=== PATIENT | female | born 1980 | race Caucasian/White ===

== ENCOUNTER 2017-01-31 19:41 | Emergency (ER) | payer BC ==
[~2017-01-31] VITALS: Ht 157.5 cm; Wt 56.2 kg
[2017-01-31 19:51] VITALS: BP 124/70; PULSE 97; RESP 18; TEMP 98.5; O2SAT 100
[2017-01-31] MEDS ORDERED: ONDANSETRON HCL 4 MG/2 ML VIAL IV PUSH ONE (20:45)
[2017-01-31] MEDS ORDERED: THIAMINE INJ 100 MG in SODIUM CHLORIDE 0.9% INJ 100 ML IV ONE (20:45)
[2017-01-31] MEDS ORDERED: SODIUM CHLOR 0.9% 1000 ML INJ 1,000 ML IV SCH ×2 (20:45)
--- NOTE | 2017-01-31 21:33 | PD ---
HPI Chief Complaint: GI Complaint Time Seen by Provider: 20:10 Travel History International Travel<30 days: No Contact w/Intl Traveler<30days: No Traveled to known affect area: No History of Present Illness HPI Is a 36 year-old woman presents to the emergency department at about 10 weeks complains of nausea vomiting. She states she's had nausea and vomiting for the past 2 weeks or so. She hasn't really been able to eat or drink anything past several days. This is her second . With her first she had a lot of trouble with nausea and vomiting as well. She was on Zofran and then. She sees Dr. Wharton. She wanted to hold off until the second trimester to use Zofran. She denies any abdominal cramping bleeding or discharge. She has had a little bit of sore throat and irritation, chest burning, and some epistaxis. History Past Medical History Medical History: Denies Significant Hx Tetanus Vaccination: > 5 Years Influenza Vaccination: No LMP: 11/08/16 : 2 Para: 1 Past Surgical History Surgical History: No Previous Surgery Social History Alcohol Use: No Tobacco Use: No Allergies-Medications (Allergen,Severity, Reaction): Coded Allergies: Penicillin (Verified Adverse Reaction, Mild, unknown, 01/31/17) Uncoded Allergies: CILLINS (Allergy, Severe, 04/16/15) Reported Meds & Prescriptions Reported Meds & Active Scripts Active No Active Prescriptions or Reported Medications Review of Systems Except as stated in HPI: all other systems reviewed are Neg Physical Exam Narrative GENERAL: 36 year-old woman, generally well-appearing, no acute distress. SKIN: Focused skin assessment warm/dry. HEAD: Atraumatic. Normocephalic. CARDIOVASCULAR: Regular rate and rhythm. No murmur appreciated. RESPIRATORY: No accessory muscle use. Clear to auscultation. Breath sounds equal bilaterally. GASTROINTESTINAL: Abdomen soft, non-tender, nondistended. Hepatic and splenic margins not palpable. MUSCULOSKELETAL: No obvious deformities. No edema. NEUROLOGICAL: Awake and alert. No obvious cranial nerve deficits. Motor grossly within normal limits. Normal speech. PSYCHIATRIC: Appropriate mood and affect; insight and judgment normal. Data Data Last Documented VS Vital Signs Date Time Temp Pulse Resp B/P Pulse Ox O2 Delivery O2 Flow Rate FiO2 01/31/17 21:34 79 16 120/74 100 Room Air 01/31/17 19:51 98.5 Orders Complete Blood Count With Diff (01/31/17 20:39) Comprehensive Metabolic Panel (01/31/17 20:39) Urinalysis - C+S If Indicated (01/31/17 20:39) Iv Access Insert/Monitor (01/31/17 20:39) Ed Poc Ultrasound (01/31/17 ) Sodium Chlor 0.9% 1000 Ml Inj (Ns 1000 M (01/31/17 20:45) Sodium Chlor 0.9% 1000 Ml Inj (Ns 1000 M (01/31/17 20:45) Thiamine Inj (Thiamine Inj) (01/31/17 20:45) Ondansetron Inj (Zofran Inj) (01/31/17 20:45) Urine Culture (01/31/17 21:25) Labs Laboratory Tests Test 01/31/17 01/31/17 21:15 21:25 White Blood Count 8.0 TH/MM3 Red Blood Count 4.21 MIL/MM3 Hemoglobin 13.3 GM/DL Hematocrit 38.6 % Mean Corpuscular Volume 91.7 FL Mean Corpuscular Hemoglobin 31.6 PG Mean Corpuscular Hemoglobin 34.4 % Concent Red Cell Distribution Width 12.0 % Platelet Count 306 TH/MM3 Mean Platelet Volume 8.6 FL Neutrophils (%) (Auto) 72.3 % Lymphocytes (%) (Auto) 21.1 % Monocytes (%) (Auto) 5.8 % Eosinophils (%) (Auto) 0.3 % Basophils (%) (Auto) 0.5 % Neutrophils # (Auto) 5.8 TH/MM3 Lymphocytes # (Auto) 1.7 TH/MM3 Monocytes # (Auto) 0.5 TH/MM3 Eosinophils # (Auto) 0.0 TH/MM3 Basophils # (Auto) 0.0 TH/MM3 CBC Comment DIFF FINAL Differential Comment Sodium Level 138 MEQ/L Potassium Level 3.9 MEQ/L Chloride Level 105 MEQ/L Carbon Dioxide Level 24.8 MEQ/L Anion Gap 8 MEQ/L Blood Urea Nitrogen 4 MG/DL Creatinine 0.42 MG/DL Estimat Glomerular Filtration 173 ML/MIN Rate Random Glucose 80 MG/DL Calcium Level 8.5 MG/DL Total Bilirubin 0.5 MG/DL Aspartate Amino Transf 10 U/L (AST/SGOT) Alanine Aminotransferase 16 U/L (ALT/SGPT) Alkaline Phosphatase 46 U/L Total Protein 7.2 GM/DL Albumin 3.6 GM/DL Urine Color YELLOW Urine Turbidity SLIGHT Urine pH 6.0 Urine Specific [place] 1.018 Urine Protein NEG mg/dL Urine Glucose (UA) NEG mg/dL Urine Ketones 80 OR GREATER mg/dL Urine Occult Blood NEG Urine Nitrite NEG Urine Bilirubin NEG Urine Leukocyte Esterase NEG Urine WBC 0-2 /hpf Urine Squamous Epithelial 0-5 /hpf Cells Urine Bacteria MOD /hpf Urine Mucus MOD /lpf Urine Yeast (Budding) RARE Microscopic Urinalysis Comment CULTURE INDICATED MDM Medical Decision Making Medical Screen Exam Complete: Yes Emergency Medical Condition: Yes Differential Diagnosis Nausea vomiting of , dehydration, vitamin deficiency, other Narrative Course Medical decision making 36-year-old with hyperemesis gravidarum. She looks well. We'll give IV fluid hydration, check labs, check urine, give Zofran, give thiamine. Reassess. Procedures Procedure Narrative Point of care ultrasound: Focus transabdominal ultrasounds performed by me at the bedside for the purpose of evaluating for well-being. Vanegas acute brace was identified, roughly consistent with dates, good movement, good heart rate. Diagnosis Primary Impression: Hyperemesis gravidarum Patient Instructions: General Instructions Additional Instructions: Use Zofran as prescribed. Take ranitidine as prescribed. Follow up with Dr. Handley in the next 2-4 days. Return to the ER for any worsening abdominal pain, vomiting, bleeding, or any other new or worsening symptoms. Med/Other Pt SpecificInfo: Prescription(s) given Scripts Ranitidine 150 Mg [id number] Mg PO BID #60 CAP Prov:Basilio Ramirez MD 01/31/17 Ondansetron Odt (Zofran Odt)4 Mg Tab4 Mg SL Q8HR PRN (Nausea/Vomiting) #15 TAB May substitute non-ODT form. Prov:Basilio Ramirez MD 01/31/17 Disposition: 01 DISCHARGE HOME Condition: Stable Basilio Ramirez MD Jan 31, 2017 21:33
[2017-01-31 21:34] VITALS: BP 120/74; PULSE 79; RESP 16; O2SAT 100
[2017-01-31 21:41] LABS: BLOOD, URINE NEG (NEG); GLUCOSE,URINE NEG (NEG); NITRITE,URINE NEG (NEG)
[2017-01-31 21:42] LABS: AUTOMATED NEUTROPHIL # 5.8 TH/MM3 (1.8-7.7); BASOPHIL % 0.5 % (0.0-2.0); EOSINOPHIL % 0.3 % (0.0-4.0); HEMATOCRIT 38.6 % (35.0-46.0); LYMPH % 21.1 % (9.0-44.0); LYMPHOCYTE # 1.7 TH/MM3 (1.0-4.8); MEAN CELL VOLUME 91.7 FL (80.0-100.0); MEAN CORPUSCULAR HEMOGLOBIN 31.6 PG (27.0-34.0); MEAN CORPUSCULAR HGB CONC 34.4 % (32.0-36.0); MONO % 5.8 % (0.0-8.0); NEUT % 72.3 % (16.0-70.0); PLATELET COUNT 306 TH/MM3 (150-450); RED BLOOD COUNT 4.21 MIL/MM3 (4.00-5.30)
[2017-01-31 21:48] LABS: HEMO FLAGS DIFF FINAL
[2017-01-31 21:52] LABS: CHLORIDE 105 MEQ/L (98-107); POTASSIUM 3.9 MEQ/L (3.5-5.1); SODIUM (NA) 138 MEQ/L (136-145)
[2017-01-31 21:55] LABS: KETONE, URINE 80 OR GREATER mg/dL (NEG)
[2017-01-31 21:56] LABS: ANION GAP 8 MEQ/L (5-15); BICARBONATE 24.8 MEQ/L (21.0-32.0); BLOOD UREA NITROGEN 4 MG/DL (7-18)
[2017-01-31 21:56] LABS: URINE COLOR YELLOW (YELLW/STRAW)
[2017-01-31 21:57] LABS: BACTERIA, URINE MOD /hpf; MUCUS URINE MOD /lpf (OCC); SQUAMOUS EPITHELIAL CELL URINE 0-5 /hpf (0-5)
[2017-01-31 21:59] LABS: ALT (GPT) 16 U/L (10-53); AST (GOT) 10 U/L (15-37); GLOMERULAR FILTRATION RATE 173 ML/MIN (>89)
[2017-01-31 22:00] LABS: TOTAL BILIRUBIN ADULT 0.5 MG/DL (0.2-1.0)
[2017-01-31 22:00] LABS: COMMENT (UR) CULTURE INDICATED; CULTURE IF INDICATED CULTURE INDICATED; WBC, URINE 0-2 /hpf (0-5)
[2017-01-31 22:02] LABS: ALKALINE PHOSPHATASE 46 U/L (45-117)
[2017-01-31] MEDS ORDERED: RANI150C PO ×2 (22:30→22:32)
[2017-01-31] MEDS ORDERED: ZOFR4TAB3 SL ×2 (22:30→22:32)
[2017-01-31 22:43] VITALS: BP 115/73; PULSE 79; RESP 18; O2SAT 100
== END 2017-01-31 23:15 | disposition home or self-care (01) ==
LOC: PHED 19:41
DX: O21.0 Mild hyperemesis gravidarum (principal); B96.89 Other specified bacterial agents as the cause of diseases classified elsewhere; Z3A.10 10 weeks gestation of pregnancy
CPT/HCPCS: 80053; 81001; 85025; 87086; 96361; 96365; 96375; 99284; J2405; J3411; J7030

== ENCOUNTER 2017-02-07 11:56 | Observation (INO) | payer BC ==
[~2017-02-07] VITALS: Ht 157.5 cm; Wt 56.0 kg
[2017-02-07] VITALS (9 sets, daily range): BP systolic 99–104; BP diastolic 53–56; PULSE 72–82; RESP 16–17; TEMP 98.1
[~2017-02-07 11:56] MED LIST: RANI150C PO; ZOFR4TAB3 SL
[2017-02-07 13:28] LABS: AUTOMATED NEUTROPHIL # 6.9 TH/MM3 (1.8-7.7); BASOPHIL % 0.3 % (0.0-2.0); HEMATOCRIT 36.8 % (35.0-46.0); HEMO FLAGS DIFF FINAL; LYMPH % 13.1 % (9.0-44.0); LYMPHOCYTE # 1.1 TH/MM3 (1.0-4.8); MEAN CELL VOLUME 90.1 FL (80.0-100.0); MEAN CORPUSCULAR HEMOGLOBIN 32.1 PG (27.0-34.0); MEAN CORPUSCULAR HGB CONC 35.6 % (32.0-36.0); MONO % 4.2 % (0.0-8.0); NEUT % 82.4 % (16.0-70.0); PLATELET COUNT 279 TH/MM3 (150-450); RED BLOOD COUNT 4.09 MIL/MM3 (4.00-5.30); RED CELL DISTRIBUTION WIDTH 12.6 % (11.6-17.2); WHITE BLOOD COUNT 8.4 TH/MM3 (4.0-11.0)
[2017-02-07] MEDS: LACTATED RINGER'S 1000 ML INJ 500 ML IV SCH (13:55)
[2017-02-07] MEDS: METOCLOPRAMIDE HCL 10 MG/2 ML VIAL IV SCH (13:55)
[2017-02-07] MEDS ORDERED: PROMETHAZINE INJ 25 MG/ML VIAL IM ONE (14:00)
[2017-02-07 14:14] LABS: ANION GAP 8 MEQ/L (5-15); AST (GOT) 7 U/L (15-37); BICARBONATE 24.9 MEQ/L (21.0-32.0); BLOOD UREA NITROGEN 5 MG/DL (7-18); CHLORIDE 103 MEQ/L (98-107); GLOMERULAR FILTRATION RATE 148 ML/MIN (>89); POTASSIUM 3.6 MEQ/L (3.5-5.1); SODIUM (NA) 136 MEQ/L (136-145)
[2017-02-07 14:19] LABS: RUBELLA IGG ANTIBODY 25.2 IU/mL (10.0-500.0); RUBELLA STATUS IMMUNE (IMMUNE)
[2017-02-07 14:26] LABS: ALKALINE PHOSPHATASE 43 U/L (45-117); ALT (GPT) 17 U/L (10-53); TOTAL BILIRUBIN ADULT 0.5 MG/DL (0.2-1.0); URIC ACID 3.2 MG/DL (2.6-6.0)
[2017-02-07] MEDS: FAMOTIDINE 20 MG/2 ML VIAL IV SCH ×2 (15:29→20:31)
--- NOTE | 2017-02-07 18:14 | PD.OB.ANTE ---
Subjective Diagnosis: (1) Hyperemesis gravidarum Interval History H & P dictated 36 yo mwf at 11 weeks with 10 pounds weight loss in 3 weeks, severe ketonuria, Inability to tolerate any po and multiple syncopal episodes including in my office today. Sent over for IV hydration and supportive care. Objective Vital Signs Vital Signs Date Time Temp Pulse Resp B/P Pulse Ox O2 Delivery O2 Flow Rate FiO2 02/07/17 17:56 17 02/07/17 13:39 17 02/07/17 13:37 73 104/56 02/07/17 13:35 72 02/07/17 13:30 76 Lab & Micro Results Test 02/07/17 02/07/17 13:07 13:08 White Blood Count 8.4 TH/MM3 Red Blood Count 4.09 MIL/MM3 Hemoglobin 13.1 GM/DL Hematocrit 36.8 % Mean Corpuscular Volume 90.1 FL Mean Corpuscular Hemoglobin 32.1 PG Mean Corpuscular Hemoglobin 35.6 % Concent Red Cell Distribution Width 12.6 % Platelet Count 279 TH/MM3 Mean Platelet Volume 8.8 FL Neutrophils (%) (Auto) 82.4 % Lymphocytes (%) (Auto) 13.1 % Monocytes (%) (Auto) 4.2 % Eosinophils (%) (Auto) 0.0 % Basophils (%) (Auto) 0.3 % Neutrophils # (Auto) 6.9 TH/MM3 Lymphocytes # (Auto) 1.1 TH/MM3 Monocytes # (Auto) 0.4 TH/MM3 Eosinophils # (Auto) 0.0 TH/MM3 Basophils # (Auto) 0.0 TH/MM3 CBC Comment DIFF FINAL Differential Comment Sodium Level 136 MEQ/L Potassium Level 3.6 MEQ/L Chloride Level 103 MEQ/L Carbon Dioxide Level 24.9 MEQ/L Anion Gap 8 MEQ/L Blood Urea Nitrogen 5 MG/DL Creatinine 0.48 MG/DL Estimat Glomerular Filtration 148 ML/MIN Rate Random Glucose 78 MG/DL Uric Acid 3.2 MG/DL Calcium Level 8.9 MG/DL Total Bilirubin 0.5 MG/DL Aspartate Amino Transf 7 U/L (AST/SGOT) Alanine Aminotransferase 17 U/L (ALT/SGPT) Alkaline Phosphatase 43 U/L Total Protein 7.3 GM/DL Albumin 3.7 GM/DL Thyroid Stimulating Hormone 0.331 uIU/ML 3rd Gen B-Hydroxybutyrate 0.20 MMOL/L Rubella Immunity Screen IMMUNE Rubella Antibody, Quantitative 25.2 IU/mL Blood Type O POSITIVE Antibody Screen NEGATIVE Physical Exam GENERAL: Well-nourished, well-developed patient. initially poor skin turgor. CARDIOVASCULAR: Regular rate and rhythm without murmurs, gallops, or rubs. tachycardia observed in office resolved RESPIRATORY: Breath sounds equal bilaterally. No accessory muscle use. ABDOMEN/GI: Abdomen soft, non-tender. heart tones heard in office. EXTREMITIES: No cyanosis or edema, non-tender, without signs of DVT. Assessment and Plan Assessment and Plan hydrate reglan, zantac and phenergan advance diet as tolerated. Juliette Wharton MD Feb 07, 2017 18:14
[2017-02-07] MEDS: LACTATED RINGER'S 1000 ML INJ 1,000 ML IV SCH (18:20)
--- NOTE | 2017-02-07 18:21 | MH ---
cc: RAYRAY VIGIL DATE OF ADMISSION: 02/07/2017 ADMISSION DIAGNOSIS Hyperemesis gravidarum with severe ketonuria, 10 pound weight loss and multiple persistent episodes of syncope including the one in my office today. She is currently at 11 weeks estimated gestational age. HISTORY OF PRESENT ILLNESS The patient is a very pleasant 36-year-old white female 2, para 1-0-0-1 with LMP 11/08 and EDC 08/15 by initial dates but 08/29/2017 by 6-week sonogram, is currently 11 and 07 weeks. This is the second visit in the office. At the first visit at six weeks we deferred her exam due to severe nausea and vomiting. She was given diclegis and then she was given Zofran. She went to the emergency room two days ago at [facility] for syncopal episodes, dehydration. She was hydrated and given additional antiemetics and sent home. She came to our office today to do her new OB and literally passed out in the office. She had severe ketones. She has lost 10 pounds since her visit January 04 and she cannot hold down any fluids or any solids. She had severe nausea with her first child but not to this extent. That was a term delivery at 7 pounds 2 ounces Other than this hyperemesis gravidarum, she has no chronic or systemic illnesses. She does not smoke or drink. She is not using any alcohol during . She has had no thyromegaly, hepatitis or other issues that we are aware. Family history is noncontributory. She works at the [employer] and her works for [employer]. PHYSICAL EXAMINATION GENERAL: She is a very pale, thin white female with poor skin turgor and tachycardia. LUNGS: Clear. HEART: Regular at 120. We did hear good heart tones. She has poor capillary refill and diminished pulses but normal reflexes. IMPRESSION Hyperemesis gravidarum in late first trimester in a multip who has had problems with nausea and vomiting in the past but not to this extent. PLAN Admit for IV hydration and aggressive intervention to allow her to obtain nutrition and do well. Rayray Vigil MD PPC/SA /5:33 PM /6:13 PM MTDGurdeep
[2017-02-08] VITALS (11 sets, daily range): BP systolic 81–110; BP diastolic 43–60; PULSE 75–87; RESP 16–18; TEMP 97.9–98.4
[2017-02-08] MEDS: PROMETHAZINE HCL 25 MG TAB PO SCH ×3 (00:25→14:17)
[2017-02-08] MEDS: METOCLOPRAMIDE HCL 10 MG/2 ML VIAL IV SCH ×2 (00:25→06:00)
[2017-02-08] MEDS: LACTATED RINGER'S 1000 ML INJ 1,000 ML IV SCH ×3 (00:26→13:17)
[2017-02-08] MEDS: LACTATED RINGER'S 1000 ML INJ 500 ML IV SCH (07:09)
[2017-02-08] MEDS: FAMOTIDINE 20 MG/2 ML VIAL IV SCH (09:00)
[2017-02-08] MEDS ORDERED: DOCUSATE SODIUM 100 MG CAP PO SCH (09:15)
[2017-02-08] MEDS ORDERED: FAMOTIDINE 20 MG TAB PO SCH (09:15)
[2017-02-08] MEDS ORDERED: REGL10TA5 PO (09:17)
[2017-02-08] MEDS ORDERED: PROM25TA10 PO (09:17)
[2017-02-08] MEDS ORDERED: ZANT150T2 PO (09:17)
--- NOTE | 2017-02-08 09:21 | PD.OB.ANTE ---
Subjective Diagnosis: (1) Hyperemesis gravidarum Diagnosis: Principal Interval History Pt states overnight she has improved as far as nausea symptoms, tolerated clears and wants to try regular diet for breakfast. Denies dizziness, fatigue, shortness of breath, VB, LOF, or contractions. Pain 0/10. Antepartum ROS: Reports: movement normal (too early for movement), Denies: New complaints, Loss of fluid, Vaginal bleeding, Contractions, Other Objective Vital Signs Vital Signs Date Time Temp Pulse Resp B/P Pulse Ox O2 Delivery O2 Flow Rate FiO2 02/08/17 08:13 76 102/60 02/08/17 08:12 18 02/08/17 08:12 76 100/57 02/08/17 08:10 98.3 02/08/17 03:39 78 110/57 02/08/17 03:39 16 02/08/17 03:38 97.9 02/08/17 00:35 80 105/59 02/08/17 00:07 77 85/54 02/08/17 00:06 75 82/43 02/08/17 00:05 76 81/50 02/08/17 00:00 98.4 02/08/17 00:00 77 16 85/54 02/07/17 20:45 80 02/07/17 20:30 16 02/07/17 20:25 82 02/07/17 20:25 99/53 02/07/17 20:24 98.1 02/07/17 17:56 17 02/07/17 13:39 17 02/07/17 13:37 73 104/56 02/07/17 13:35 72 02/07/17 13:30 76 Lab & Micro Results Test 02/07/17 02/07/17 13:07 13:08 White Blood Count 8.4 TH/MM3 Red Blood Count 4.09 MIL/MM3 Hemoglobin 13.1 GM/DL Hematocrit 36.8 % Mean Corpuscular Volume 90.1 FL Mean Corpuscular Hemoglobin 32.1 PG Mean Corpuscular Hemoglobin 35.6 % Concent Red Cell Distribution Width 12.6 % Platelet Count 279 TH/MM3 Mean Platelet Volume 8.8 FL Neutrophils (%) (Auto) 82.4 % Lymphocytes (%) (Auto) 13.1 % Monocytes (%) (Auto) 4.2 % Eosinophils (%) (Auto) 0.0 % Basophils (%) (Auto) 0.3 % Neutrophils # (Auto) 6.9 TH/MM3 Lymphocytes # (Auto) 1.1 TH/MM3 Monocytes # (Auto) 0.4 TH/MM3 Eosinophils # (Auto) 0.0 TH/MM3 Basophils # (Auto) 0.0 TH/MM3 CBC Comment DIFF FINAL Differential Comment Sodium Level 136 MEQ/L Potassium Level 3.6 MEQ/L Chloride Level 103 MEQ/L Carbon Dioxide Level 24.9 MEQ/L Anion Gap 8 MEQ/L Blood Urea Nitrogen 5 MG/DL Creatinine 0.48 MG/DL Estimat Glomerular Filtration 148 ML/MIN Rate Random Glucose 78 MG/DL Uric Acid 3.2 MG/DL Calcium Level 8.9 MG/DL Total Bilirubin 0.5 MG/DL Aspartate Amino Transf 7 U/L (AST/SGOT) Alanine Aminotransferase 17 U/L (ALT/SGPT) Alkaline Phosphatase 43 U/L Total Protein 7.3 GM/DL Albumin 3.7 GM/DL Thyroid Stimulating Hormone 0.331 uIU/ML 3rd Gen B-Hydroxybutyrate 0.20 MMOL/L Rubella Immunity Screen IMMUNE Rubella Antibody, Quantitative 25.2 IU/mL Blood Type O POSITIVE Antibody Screen NEGATIVE Physical Exam GENERAL: Well-nourished, well-developed patient. Sitting up in bed. CARDIOVASCULAR: Regular rate and rhythm without murmurs, gallops, or rubs. RESPIRATORY: Breath sounds equal bilaterally. No accessory muscle use. ABDOMEN/GI: Abdomen soft, non-tender. Fundus: beneath symphysis c/w dates GENITOURINARY: External Genitalia: deferred FHT's: +FCA 170s this AM EXTREMITIES: No cyanosis or edema, non-tender, without signs of DVT. Assessment and Plan Problem List: (1) Hyperemesis gravidarum Status: Acute Assessment and Plan Hyperemesis gravidarum - controlled with combination of Pepcid, Phenergan, Reglan IV overnight; will transition to po and see if tolerates lunch today; TSH low but need confirmatory Free T4, ordered this AM, will f/u and see if needs treatment dispo: not yet meeting discharge criteria, hopefully later today Niurka Currie MD Feb 08, 2017 09:20
[2017-02-08] MEDS ORDERED: METOCLOPRAMIDE HCL 10 MG TAB PO SCH (11:00)
[2017-02-08 12:38] LABS: FREE T3 2.3 PG/ML (2.18-3.98); FREE T4 1.2 NG/DL (0.76-1.46)
--- NOTE | 2017-02-08 13:35 | HHI.DS ---
Discharge Summary Admission Date Feb 07, 2017 at 11:56 Discharge Date: Feb 08, 2017 Admitting Diagnosis Hyperemesis gravidarum, dennis at 11 weeks (1) Hyperemesis gravidarum Diagnosis: Principal Procedures monitoring on labor and delivery, IV fluids and IV medication Brief History 36 yo at 11 weeks gestation, pt of Dr. Chavez admitted after fainting in office due to history of severe nausea/vomiting in first trimester, hyperemesis gravidarum diagnosed. Pt was poorly controlled on oral Zofran. CBC/BMP: 02/07/17 1307 02/07/17 1307 Significant Findings Laboratory Tests Test 02/07/17 13:07 Neutrophils (%) (Auto) 82.4 % (16.0-70.0) Blood Urea Nitrogen 5 MG/DL (7-18) Creatinine 0.48 MG/DL (0.50-1.00) Aspartate Amino Transf 7 U/L (15-37) (AST/SGOT) Alkaline Phosphatase 43 U/L (45-117) Thyroid Stimulating Hormone 0.331 uIU/ML 3rd Gen (0.358-3.740) PE at Discharge NAD A&Ox3 CTA bl no wheeze RRR Abd soft nontender nondistended uterus beneath symphysis c/w dates no c/c/e x 4 +FHTs 170s Hospital Course Pt was admitted 02/07/17 for IV hydration and IV antiemetics to control severe hyperemesis symptoms including syncope in office. Pt did well after medications and IV fluids, was transitioned to po anti-emetics and reflux medications, tolerated breakfast and lunch and was able to ambulate without any dizziness or fatigue. Discharged to home with office f/u in 1-[address] Wharton. Screening TSH had been abnormal but Free T4 was wnl. Pt Condition on Discharge: Good Discharge Disposition: Discharge Home Discharge Instructions DIET: Follow Instructions for: Diet Activities you can perform: See Additionl Instruction ( precautions) Niurka Currie MD Feb 08, 2017 13:35
[2017-02-08 14:11] LABS: RAPID PLASMA REAGIN SCREEN NON-REACTIVE (NON-REACTVE)
[2017-02-10 03:51] LABS: THYROGLOB ABS LESS THAN 1 IU/mL (< OR = 1)
== END 2017-02-08 15:45 | disposition home or self-care (01) ==
LOC: H2EB 11:56
PROVIDERS: ADMIT Obstetrics & Gynecology; ATTEND Obstetrics & Gynecology
DX: O21.1 Hyperemesis gravidarum with metabolic disturbance (principal); Z3A.11 11 weeks gestation of pregnancy; R82.4 Acetonuria; R55 Syncope and collapse; R63.4 Abnormal weight loss
CPT/HCPCS: 80053; 82010; 84439; 84443; 84481; 84550; 85025; 86376; 86592; 86703; 86762; 86800; 86850; 86900; 86901; G0378; J2550; J2765; J7120; Q0169

== ENCOUNTER 2017-07-11 12:17 | Observation (INO) | payer BC ==
[2017-07-11] VITALS (31 sets, daily range): BP systolic 103–109; BP diastolic 55–67; PULSE 97–117; RESP 18; TEMP 98.5–99.5
[~2017-07-11] VITALS: Ht 157.5 cm; Wt 69.0 kg
[~2017-07-11 12:17] MED LIST changes: +PROM25TA10 PO; -RANI150C PO; +REGL10TA5 PO; +ZANT150T2 PO
[2017-07-11 12:56] LABS: BACTERIA, URINE MANY /hpf; BILIRUBIN, URINE NEG (NEG); BLOOD, URINE SMALL (NEG); GLUCOSE,URINE NEG (NEG); KETONE, URINE 150 mg/dL (NEG); MUCUS URINE FEW /lpf (OCC); NITRITE,URINE POS (NEG); SQUAMOUS EPITHELIAL CELL URINE 10 /hpf (0-5); URINE COLOR YELLOW (YELLW/STRAW); URINE LEUKOCYTE ESTERASE LARGE (NEG); WHITE BLOOD CELL CLUMPS MOD
--- NOTE | 2017-07-11 13:04 | PD ---
HPI Chief Complaint UTI symptoms, back pain Date Seen: Jul 11, 2017 Time Seen: 12:49 Travel History International Travel<30 Days: No Contact w/Intl Traveler<30Days: No History of Present Illness HPI Patient is a 36 year old at 33 and 0/7 weeks gestation, OB care with Dr. Wharton. She presents to the OB ED with continued low back pain and urinary frequency. She states she just finished a seven-day course of Macrobid for a UTI , last dose 07/06. She states her symptoms resolved for a few days but recurred in the last day or so characterized by increased urinary frequency and severe right lower back pain. No dysuria. She denies leakage of fluid, vaginal bleeding , and contractions. She feels baby moving regularly. She denies CHACON/N/V/D/fever/ sick contacts/SOB/calf pain/dizziness/seeing spots. She is noted to have penicillin allergy, causing rash in the past. History Past Medical History Medical History: Denies Significant Hx Obstetric History Obstetric History : Full-term vaginal delivery female infant, hyperemesis gravidarum G2: Current, hyperemesis gravidarum, UTI diagnosed approximately 06/29/17, treated with Macrobid 7 days 100 mg twice a day Denies other complications this Past Surgical History Surgical History: No Previous Surgery Family History Family History: Negative Social History Alcohol Use: No Tobacco Use: No Substance Abuse: No Allergies-Medications (Allergen,Severity, Reaction): Coded Allergies: penicillin G (Unverified Adverse Reaction, Severe, rash, 02/28/17) Uncoded Allergies: CILLINS (Allergy, Severe, 04/16/15) Home Meds Active Scripts Metoclopramide (Reglan) 10 Mg Tab, 10 MG PO TIDAC for Reflux, #60 TAB 2 Refills Prov:Niurka Currie MD 02/08/17 Ranitidine (Zantac) 150 Mg Tab, 150 MG PO BID for Reduce Stomach Acid, #60 TAB 2 Refills Prov:Niurka Currie MD 02/08/17 Promethazine (Phenergan) 25 Mg Tablet, 25 MG PO Q8H for Nausea, #90 TAB 2 Refills Prov:Niurka Currie MD 02/08/17 Ondansetron Odt (Zofran Odt) 4 Mg Tab, 4 MG SL Q8HR Y for Nausea/Vomiting, #15 TAB May substitute non-ODT form. Prov:Basilio Ramirez MD 01/31/17 Review of Systems Except as stated in HPI: all other systems reviewed are Neg Physical Exam Vital Signs Date Time Temp Pulse Resp B/P (MAP) Pulse Ox O2 Delivery O2 Flow Rate FiO2 07/11/17 12:40 104 07/11/17 12:35 108 Narrative GENERAL: Well-nourished, well-developed female in no apparent distress. SKIN: Warm and dry. No rashes or ecchymoses. HEAD: Normocephalic and atraumatic. EYES: No scleral icterus. No injection or drainage. ENT: No nasal drainage noted. Mucous membranes pink. Airway patent. CARDIOVASCULAR: Regular rate and rhythm without murmurs, gallops, or rubs. RESPIRATORY: Breath sounds equal bilaterally. No accessory muscle use. BACK: Positive CVA tenderness on the right ABDOMEN/GI: Abdomen soft, non-tender, bowel sounds present, no rebound, no guarding. Gravid uterus. GENITOURINARY: deferred External Genitalia: intact and normal in appearance Uterine Contractions: some irritability Cervix: close, thick, high FHT's: Category: 1 Baseline: 150s Reactive: 160s Variability: mod Decels: absent EXTREMITIES: No cyanosis or edema. BACK: Nontender without obvious deformity. No CVA tenderness. NEUROLOGICAL: Awake and alert. Motor and sensory grossly within normal limits. Five out of 5 muscle strength in all muscle groups. Normal speech. Data Data Vital Signs Reviewed: Yes (Temp 98.6, BP 119/70) Orders Orders Vital Signs (Adult) .ON ADMISSION (07/11/17 12:35) ^ Labor Status (07/11/17 12:35) Urinalysis - C+S If Indicated (07/11/17 12:35) ^ Non Stress Test (07/11/17 12:35) Labs Laboratory Tests Test 07/11/17 12:30 MDM Medical Record Reviewed: Yes Narrative Course / MDM Patient is a 36 year old at 33 and 0/7 weeks gestation, OB care with Dr. Wharton presenting with possible pyelonephritis. If workup positive, will admit to OBS for IV antibiotics and consult Dr. Wharton. Pyelonephritis: Suspected based on history and presenting symptoms Afebrile UA ordered By mouth hydration for now, given history of hyperemesis gravidarum we'll transition IV fluids if needed Intrauterine : Category 1 tracing No contractions on monitor to suggest labor Routine care Hyperemesis gravidarum: Takes Zofran when necessary, last dose this morning IV fluids as necessary Zofran IV as necessary WDW Radhika Marcos MD R2 Jul 11, 2017 13:04
[2017-07-11] MEDS ORDERED: LACTATED RINGER'S 1000 ML INJ 1,000 ML IV ONE (13:45)
[2017-07-11] MEDS ORDERED: ONDANSETRON HCL 4 MG/2 ML VIAL IV PUSH PRN (13:45)
[2017-07-11] MEDS ORDERED: SODIUM CHLORIDE 0.9% FLUSH 10 ML FLUSH IV FLUSH PRN (13:45)
--- NOTE | 2017-07-11 13:50 | HHI.HP ---
HPI Travel History International Travel<30 Days: No Contact w/Intl Traveler<30Days: No History of Present Illness HPI Patient is a 36 year old at 33 and 0/7 weeks gestation, OB care with Dr. Wharton. She presents to the OB ED with continued low back pain and urinary frequency. She states she just finished a seven-day course of Macrobid for a UTI , last dose 07/06. She states her symptoms resolved for a few days but recurred in the last day or so characterized by increased urinary frequency and severe right lower back pain. No dysuria. She denies leakage of fluid, vaginal bleeding , and contractions. She feels baby moving regularly. She denies CHACON/N/V/D/fever/ sick contacts/SOB/calf pain/dizziness/seeing spots. She is noted to have penicillin allergy, causing rash in the past. History Past Medical History Medical History: Denies Significant Hx Obstetric History Obstetric History Obstetric History : Full-term vaginal delivery female infant, hyperemesis gravidarum G2: Current, hyperemesis gravidarum, UTI diagnosed approximately 06/29/17, treated with Macrobid 7 days 100 mg twice a day Denies other complications this Past Surgical History Surgical History: No Previous Surgery Family History Family History: Negative Social History Alcohol Use: No Tobacco Use: No Substance Abuse: No Allergies-Medications (Allergen,Severity, Reaction): Coded Allergies: penicillin G (Unverified Adverse Reaction, Severe, rash, 02/28/17) Uncoded Allergies: CILLINS (Allergy, Severe, 04/16/15) Home Meds Active Scripts Metoclopramide (Reglan) 10 Mg Tab, 10 MG PO TIDAC for Reflux, #60 TAB 2 Refills Prov:Niurka Currie MD 02/08/17 Ranitidine (Zantac) 150 Mg Tab, 150 MG PO BID for Reduce Stomach Acid, #60 TAB 2 Refills Prov:Niurka Currie MD 02/08/17 Promethazine (Phenergan) 25 Mg Tablet, 25 MG PO Q8H for Nausea, #90 TAB 2 Refills Prov:Niurka Currie MD 02/08/17 Ondansetron Odt (Zofran Odt) 4 Mg Tab, 4 MG SL Q8HR Y for Nausea/Vomiting, #15 TAB May substitute non-ODT form. Prov:Basilio Ramirez MD 01/31/17 Review of Systems Except as stated in HPI: all other systems reviewed are Neg Physical Exam Vital Signs Date Time Temp Pulse Resp B/P (MAP) Pulse Ox O2 Delivery O2 Flow Rate FiO2 07/11/17 12:40 104 07/11/17 12:35 108 Narrative GENERAL: Well-nourished, well-developed female in no apparent distress. SKIN: Warm and dry. No rashes or ecchymoses. HEAD: Normocephalic and atraumatic. EYES: No scleral icterus. No injection or drainage. ENT: No nasal drainage noted. Mucous membranes pink. Airway patent. CARDIOVASCULAR: Regular rate and rhythm without murmurs, gallops, or rubs. RESPIRATORY: Breath sounds equal bilaterally. No accessory muscle use. BACK: Positive CVA tenderness on the right ABDOMEN/GI: Abdomen soft, non-tender, bowel sounds present, no rebound, no guarding. Gravid uterus. GENITOURINARY: deferred External Genitalia: intact and normal in appearance Uterine Contractions: some irritability Cervix: close, thick, high FHT's: Category: 1 Baseline: 150s Reactive: 160s Variability: mod Decels: absent EXTREMITIES: No cyanosis or edema. BACK: Nontender without obvious deformity. No CVA tenderness. NEUROLOGICAL: Awake and alert. Motor and sensory grossly within normal limits. Five out of 5 muscle strength in all muscle groups. Normal speech. Caprini VTE Risk Assessment Caprini VTE Risk Assessment: Mod/High Risk (score >= 2) Caprini Risk Assessment Model Point Value = 1 Point Value = 2 Point Value = 3 Point Value = 5 Age 41-60 Minor surgery BMI > 25 kg/m2 Swollen legs Varicose veins or History of unexplained or recurrent spontaneous Oral contraceptives or hormone replacement Sepsis (< 1 month) Serious lung disease, including pneumonia (< 1 month) Abnormal pulmonary function Acute myocardial infarction Congestive heart failure (< 1 month) History of inflammatory bowel disease Medical patient at bed rest Age 61-74 Arthroscopic surgery Major open surgery (> 45 min) Laparoscopic surgery (> 45 min) Malignancy Confined to bed (> 72 hours) Immobilizing plaster cast Central venous access Age >= 75 History of VTE Family history of VTE Factor V Leiden Prothrombin [id number] Lupus anticoagulant Anticardiolipin antibodies Elevated serum homocysteine Heparin-induced thrombocytopenia Other congenital or acquired thrombophilia Stroke (< 1 month) Elective arthroplasty Hip, pelvis, or leg fracture Acute spinal cord injury (< 1 month) Prophylaxis Regimen Total Risk Factor Score Risk Level Prophylaxis Regimen 0-1 Low Early ambulation 2 Moderate Order ONE of the following: *Sequential Compression Device (SCD) *Heparin 5000 units SQ BID 3-4 Higher Order ONE of the following medications: *Heparin 5000 units SQ TID *Enoxaparin/Lovenox 40 mg SQ daily (WT < 150 kg, CrCl > 30 mL/min) *Enoxaparin/Lovenox 30 mg SQ daily (WT < 150 kg, CrCl > 10-29 mL/min) *Enoxaparin/Lovenox 30 mg SQ BID (WT < 150 kg, CrCl > 30 mL/min) AND/OR *Sequential Compression Device (SCD) 5 or more Highest Order ONE of the following medications: *Heparin 5000 units SQ TID (Preferred with Epidurals) *Enoxaparin/Lovenox 40 mg SQ daily (WT < 150 kg, CrCl > 30 mL/min) *Enoxaparin/Lovenox 30 mg SQ daily (WT < 150 kg, CrCl > 10-29 mL/min) *Enoxaparin/Lovenox 30 mg SQ BID (WT < 150 kg, CrCl > 30 mL/min) AND *Sequential Compression Device (SCD) Data Data Vital Signs Reviewed: Yes (wnl, afebrile) Orders Orders Vital Signs (Adult) .ON ADMISSION (07/11/17 12:35) ^ Labor Status (07/11/17 12:35) Urinalysis - C+S If Indicated (07/11/17 12:35) ^ Non Stress Test (07/11/17 12:35) Urine Culture (07/11/17 12:30) Place In Observation (07/11/17 ) Diet Regular Basic (07/11/17 Lunch) Vital Signs (Adult) [id number] AWAKE (07/11/17 13:31) Heart (07/11/17 13:31) Activity Oob Ad Rosamaria (07/11/17 13:31) Complete Blood Count With Diff (07/11/17 13:31) Basic Metabolic Panel (Bmp) (07/11/17 13:31) Hepatic Functional Panel (07/11/17 13:31) Sodium Chloride 0.9% Flush (Ns Flush) (07/11/17 21:00) Sodium Chloride 0.9% Flush (Ns Flush) (07/11/17 13:45) Ondansetron Inj (Zofran Inj) (07/11/17 13:45) Ob (2e) Additional Admit Info (07/11/17 13:36) Labs Laboratory Tests Test 07/11/17 12:30 Urine Color YELLOW Urine Turbidity CLOUDY Urine pH 6.0 Urine Specific [place] 1.018 Urine Protein 100 Urine Glucose (UA) NEG Urine Ketones 150 Urine Occult Blood SMALL Urine Nitrite POS Urine Bilirubin NEG Urine Urobilinogen LESS THAN 2.0 Urine Leukocyte Esterase LARGE Urine RBC 28 Urine WBC Urine WBC Clumps MOD Urine Squamous Epithelial Cells 10 Urine Bacteria MANY Urine Mucus FEW Microscopic Urinalysis Comment CULTURE INDICATED Date/Time Source Procedure Growth Status 07/11/17 12:30 Urine Clean Catch Urine Culture Pending Received Assessment/Plan Assessment and Plan Patient is a 36 year old at 33 and 0/7 weeks gestation, OB care with Dr. Wharton presenting with possible pyelonephritis. Pyelonephritis: Suspected based on history and presenting symptoms UTI treated with Macrobid 7-day course 06/30-07/06 with continued symptoms Right CVA tenderness UA ordered and noted to have positive nitrites, large leukocyte esterase, innumerable WBC, 100 protein-->culture pending IV LR bolus 1 liter, then at rate of 125ml/hr Antibiotic course per consultation with Dr. Wharton: Rocephin 2g q24hr IV, Gentamicin 80mg q8hr IV Patient counseled on likely 48 hr stay Will treat contractions with terbutaline if non-resolving with fluids Intrauterine : Category 1 tracing --> will continue intermittent monitoring at least q shift Contractions noted intermittently on monitor, will treat with IVF and monitor Cervix closed, thick, high Routine care Hyperemesis gravidarum: Takes Zofran PRN at home necessary, last dose this morning IVF as above Zofran 4mg q6hr IV PRN WDW Radhika Marcos MD R2 Jul 11, 2017 13:50
[2017-07-11] MEDS: cefTRIAXone INJ 2,000 MG in SODIUM CHLORIDE 0.9% INJ 100 ML IV SCH (14:11)
[2017-07-11 14:22] LABS: AUTOMATED NEUTROPHIL # 11.4 TH/MM3 (1.8-7.7); BASOPHIL % 0.2 % (0.0-2.0); HEMATOCRIT 31.9 % (35.0-46.0); HEMOGLOBIN 10.7 GM/DL (11.6-15.3); LYMPH % 5.8 % (9.0-44.0); LYMPHOCYTE # 0.8 TH/MM3 (1.0-4.8); MEAN CELL VOLUME 90.5 FL (80.0-100.0); MEAN CORPUSCULAR HEMOGLOBIN 30.4 PG (27.0-34.0); MEAN CORPUSCULAR HGB CONC 33.6 % (32.0-36.0); MEAN PLATELET VOLUME 8.3 FL (7.0-11.0); MONO % 6.1 % (0.0-8.0); MONOCYTE # 0.8 TH/MM3 (0-0.9); NEUT % 87.9 % (16.0-70.0); PLATELET COUNT 266 TH/MM3 (150-450); RED BLOOD COUNT 3.52 MIL/MM3 (4.00-5.30); RED CELL DISTRIBUTION WIDTH 12.9 % (11.6-17.2)
[2017-07-11] MEDS: LACTATED RINGER'S 1000 ML INJ 1,000 ML IV SCH (14:33)
[2017-07-11] MEDS: GENTAMICIN INJ 80 MG in SODIUM CHLORIDE 0.9% INJ 100 ML IV SCH ×2 (14:39→22:06)
[2017-07-11 14:44] LABS: ALBUMIN 2.5 GM/DL (3.4-5.0); BICARBONATE 20.1 MEQ/L (21.0-32.0); CALCIUM 8.5 MG/DL (8.5-10.1); CREATININE 0.41 MG/DL (0.50-1.00)
[2017-07-11 14:45] LABS: DIRECT BILIRUBIN ADULT 0.1 MG/DL (0.0-0.2)
[2017-07-11 14:47] LABS: INDIRECT BILIRUBIN 0.6 MG/DL (0.0-0.8); TOTAL BILIRUBIN ADULT 0.7 MG/DL (0.2-1.0); TOTAL PROTEIN 6.8 GM/DL (6.4-8.2)
--- NOTE | 2017-07-11 19:40 | PD.OB.ANTE ---
Subjective Diagnosis: (1) Pyelonephritis affecting in third trimester Interval History 36 yo mwf at 33 weeks EGA now on gent and rocephin for severe RCVAT and dirty urine that is presumed to be pyelonephritis. Culture pending. Had been on Macrobid through the office. No prior hx of UTIs. Had severe hyperemesis in first trimester. Otherwise healthy woman with normal . Still having RCVAT but less so. Objective Vital Signs Vital Signs Date Time Temp Pulse Resp B/P (MAP) Pulse Ox O2 Delivery O2 Flow Rate FiO2 07/11/17 16:34 98.5 18 07/11/17 16:34 98 103/58 (73) 07/11/17 14:45 104 07/11/17 14:40 101 07/11/17 14:36 98.5 07/11/17 14:35 105 07/11/17 14:30 102 07/11/17 14:25 101 07/11/17 14:20 102 07/11/17 14:15 100 18 07/11/17 14:14 101 107/67 (80) 07/11/17 14:10 103 07/11/17 14:05 107 07/11/17 14:00 109 07/11/17 13:45 106 07/11/17 13:40 109 07/11/17 13:35 106 07/11/17 13:30 97 07/11/17 13:25 106 07/11/17 13:20 109 07/11/17 13:15 107 07/11/17 13:10 105 07/11/17 13:05 103 07/11/17 13:00 102 07/11/17 12:55 101 07/11/17 12:50 110 07/11/17 12:45 101 07/11/17 12:40 104 07/11/17 12:35 108 Lab & Micro Results Test 07/11/17 12:30 07/11/17 13:47 Urine Color YELLOW Urine Turbidity CLOUDY Urine pH 6.0 Urine Specific [place] 1.018 Urine Protein 100 mg/dL Urine Glucose (UA) NEG mg/dL Urine Ketones 150 mg/dL Urine Occult Blood SMALL Urine Nitrite POS Urine Bilirubin NEG Urine Urobilinogen LESS THAN 2.0 MG/DL Urine Leukocyte Esterase LARGE Urine RBC 28 /hpf Urine WBC /hpf Urine WBC Clumps MOD Urine Squamous Epithelial Cells 10 /hpf Urine Bacteria MANY /hpf Urine Mucus FEW /lpf Microscopic Urinalysis Comment CULTURE INDICATED White Blood Count 13.0 TH/MM3 Red Blood Count 3.52 MIL/MM3 Hemoglobin 10.7 GM/DL Hematocrit 31.9 % Mean Corpuscular Volume 90.5 FL Mean Corpuscular Hemoglobin 30.4 PG Mean Corpuscular Hemoglobin Concent 33.6 % Red Cell Distribution Width 12.9 % Platelet Count 266 TH/MM3 Mean Platelet Volume 8.3 FL Neutrophils (%) (Auto) 87.9 % Lymphocytes (%) (Auto) 5.8 % Monocytes (%) (Auto) 6.1 % Eosinophils (%) (Auto) 0.0 % Basophils (%) (Auto) 0.2 % Neutrophils # (Auto) 11.4 TH/MM3 Lymphocytes # (Auto) 0.8 TH/MM3 Monocytes # (Auto) 0.8 TH/MM3 Eosinophils # (Auto) 0.0 TH/MM3 Basophils # (Auto) 0.0 TH/MM3 CBC Comment DIFF FINAL Differential Comment Blood Urea Nitrogen 6 MG/DL Creatinine 0.41 MG/DL Random Glucose 90 MG/DL Total Protein 6.8 GM/DL Albumin 2.5 GM/DL Calcium Level 8.5 MG/DL Alkaline Phosphatase 95 U/L Aspartate Amino Transf (AST/SGOT) 12 U/L Alanine Aminotransferase (ALT/SGPT) 11 U/L Total Bilirubin 0.7 MG/DL Direct Bilirubin 0.1 MG/DL Sodium Level 134 MEQ/L Potassium Level 3.5 MEQ/L Chloride Level 104 MEQ/L Carbon Dioxide Level 20.1 MEQ/L Anion Gap 10 MEQ/L Estimat Glomerular Filtration Rate 178 ML/MIN Indirect Bilirubin 0.6 MG/DL Date/Time Source Procedure Growth Status 07/11/17 12:30 Urine Clean Catch Urine Culture Pending Received Physical Exam GENERAL: Well-nourished, well-developed patient. CARDIOVASCULAR: Regular rate and rhythm without murmurs, gallops, or rubs. RESPIRATORY: Breath sounds equal bilaterally. No accessory muscle use. ABDOMEN/GI: Abdomen soft, non-tender. maarked right CVAT FH consistent with dates GENITOURINARY: External Genitalia: intact and normal in appearance EXTREMITIES: No cyanosis or edema, non-tender, without signs of DVT. FHR 140s with many accels and BTBV Assessment and Plan Assessment and Plan Patient is a 36 year old at 33 and 0/7 weeks gestation, OB care with Dr. Wharton presenting with possible pyelonephritis. Pyelonephritis: Suspected based on history and presenting symptoms UTI treated with Macrobid 7-day course 06/30-07/06 with continued symptoms Right CVA tenderness UA ordered and noted to have positive nitrites, large leukocyte esterase, innumerable WBC, 100 protein-->culture pending IV LR bolus 1 liter, then at rate of 125ml/hr Antibiotic course per consultation with Dr. Wharton: Rocephin 2g q24hr IV, Gentamicin 80mg q8hr IV Patient counseled on likely 48 hr stay Will treat contractions with terbutaline if non-resolving with fluids Intrauterine : Category 1 tracing --> will continue intermittent monitoring at least q shift Contractions noted intermittently on monitor, will treat with IVF and monitor Cervix closed, thick, high Routine care Hyperemesis gravidarum: Takes Zofran PRN at home necessary, last dose this morning IVF as above Zofran 4mg q6hr IV PRN WDW Dr. Ulloa 07/11/17 18:40 Comfortable with reassuring strip needs 48 hours IV antibiotics Juliette Wharton MD Jul 11, 2017 19:40
[2017-07-11] MEDS: SODIUM CHLORIDE 0.9% FLUSH 10 ML FLUSH IV FLUSH SCH (21:00)
[2017-07-12] VITALS (22 sets, daily range): BP systolic 89–104; BP diastolic 44–63; PULSE 89–122; RESP 16–18; TEMP 98.4–101.3
[2017-07-12] MEDS: LACTATED RINGER'S 1000 ML INJ 1,000 ML IV SCH ×3 (04:35→20:02)
[2017-07-12] MEDS: GENTAMICIN INJ 80 MG in SODIUM CHLORIDE 0.9% INJ 100 ML IV SCH ×3 (06:03→22:06)
--- NOTE | 2017-07-12 08:07 | PD.OB.ANTE ---
Subjective Diagnosis: (1) Pyelonephritis affecting in third trimester Diagnosis: Principal Interval History 33 07/23 with right pyelonephritris still having signficant RCVAT will take own zoloft low grade temp in night no NV, GFM having occasional contractions not feeling them no leaking or bleeding Objective Vital Signs Vital Signs Date Time Temp Pulse Resp B/P (MAP) Pulse Ox O2 Delivery O2 Flow Rate FiO2 07/12/17 06:05 98.4 07/12/17 02:55 101 103/59 (74) 07/12/17 02:54 98.9 18 07/11/17 22:50 99.3 07/11/17 19:43 99.5 18 07/11/17 19:32 117 109/55 (73) 07/11/17 16:34 98.5 18 07/11/17 16:34 98 103/58 (73) 07/11/17 14:45 104 07/11/17 14:40 101 07/11/17 14:36 98.5 07/11/17 14:35 105 07/11/17 14:30 102 07/11/17 14:25 101 07/11/17 14:20 102 07/11/17 14:15 100 18 07/11/17 14:14 101 107/67 (80) 07/11/17 14:10 103 07/11/17 14:05 107 07/11/17 14:00 109 07/11/17 13:45 106 07/11/17 13:40 109 07/11/17 13:35 106 07/11/17 13:30 97 07/11/17 13:25 106 07/11/17 13:20 109 07/11/17 13:15 107 07/11/17 13:10 105 07/11/17 13:05 103 07/11/17 13:00 102 07/11/17 12:55 101 07/11/17 12:50 110 07/11/17 12:45 101 07/11/17 12:40 104 07/11/17 12:35 108 Lab & Micro Results Test 07/11/17 12:30 07/11/17 13:47 Urine Color YELLOW Urine Turbidity CLOUDY Urine pH 6.0 Urine Specific [place] 1.018 Urine Protein 100 mg/dL Urine Glucose (UA) NEG mg/dL Urine Ketones 150 mg/dL Urine Occult Blood SMALL Urine Nitrite POS Urine Bilirubin NEG Urine Urobilinogen LESS THAN 2.0 MG/DL Urine Leukocyte Esterase LARGE Urine RBC 28 /hpf Urine WBC /hpf Urine WBC Clumps MOD Urine Squamous Epithelial Cells 10 /hpf Urine Bacteria MANY /hpf Urine Mucus FEW /lpf Microscopic Urinalysis Comment CULTURE INDICATED White Blood Count 13.0 TH/MM3 Red Blood Count 3.52 MIL/MM3 Hemoglobin 10.7 GM/DL Hematocrit 31.9 % Mean Corpuscular Volume 90.5 FL Mean Corpuscular Hemoglobin 30.4 PG Mean Corpuscular Hemoglobin Concent 33.6 % Red Cell Distribution Width 12.9 % Platelet Count 266 TH/MM3 Mean Platelet Volume 8.3 FL Neutrophils (%) (Auto) 87.9 % Lymphocytes (%) (Auto) 5.8 % Monocytes (%) (Auto) 6.1 % Eosinophils (%) (Auto) 0.0 % Basophils (%) (Auto) 0.2 % Neutrophils # (Auto) 11.4 TH/MM3 Lymphocytes # (Auto) 0.8 TH/MM3 Monocytes # (Auto) 0.8 TH/MM3 Eosinophils # (Auto) 0.0 TH/MM3 Basophils # (Auto) 0.0 TH/MM3 CBC Comment DIFF FINAL Differential Comment Blood Urea Nitrogen 6 MG/DL Creatinine 0.41 MG/DL Random Glucose 90 MG/DL Total Protein 6.8 GM/DL Albumin 2.5 GM/DL Calcium Level 8.5 MG/DL Alkaline Phosphatase 95 U/L Aspartate Amino Transf (AST/SGOT) 12 U/L Alanine Aminotransferase (ALT/SGPT) 11 U/L Total Bilirubin 0.7 MG/DL Direct Bilirubin 0.1 MG/DL Sodium Level 134 MEQ/L Potassium Level 3.5 MEQ/L Chloride Level 104 MEQ/L Carbon Dioxide Level 20.1 MEQ/L Anion Gap 10 MEQ/L Estimat Glomerular Filtration Rate 178 ML/MIN Indirect Bilirubin 0.6 MG/DL Date/Time Source Procedure Growth Status 07/11/17 12:30 Urine Clean Catch Urine Culture Pending Received Physical Exam GENERAL: Well-nourished, well-developed patient. CARDIOVASCULAR: Regular rate and rhythm without murmurs, gallops, or rubs. RESPIRATORY: Breath sounds equal bilaterally. No accessory muscle use. ABDOMEN/GI: Abdomen soft, non-tender. RCVAT Strip reactive EXTREMITIES: No cyanosis or edema, non-tender, without signs of DVT. Assessment and Plan Problem List: (1) Pyelonephritis affecting in third trimester ICD Codes: O23.03 - Infections of kidney in , third trimester Assessment and Plan Patient is a 36 year old at 33 and 0/7 weeks gestation, OB care with Dr. Wharton presenting with possible pyelonephritis. Pyelonephritis: Suspected based on history and presenting symptoms UTI treated with Macrobid 7-day course 06/30-07/06 with continued symptoms Right CVA tenderness UA ordered and noted to have positive nitrites, large leukocyte esterase, innumerable WBC, 100 protein-->culture pending IV LR bolus 1 liter, then at rate of 125ml/hr Antibiotic course per consultation with Dr. Wharton: Rocephin 2g q24hr IV, Gentamicin 80mg q8hr IV Patient counseled on likely 48 hr stay Will treat contractions with terbutaline if non-resolving with fluids Intrauterine : Category 1 tracing --> will continue intermittent monitoring at least q shift Contractions noted intermittently on monitor, will treat with IVF and monitor Cervix closed, thick, high Routine care Hyperemesis gravidarum: Takes Zofran PRN at home necessary, last dose this morning IVF as above Zofran 4mg q6hr IV PRN WDW Dr. Ulloa 07/11/17 18:40 Comfortable with reassuring strip needs 48 hours IV antibiotics 07/12/17 0800 Still with RCVAT renal sonogram continue IV antibiotics Juliette Wharton MD Jul 12, 2017 08:07
[2017-07-12] MEDS: SODIUM CHLORIDE 0.9% FLUSH 10 ML FLUSH IV FLUSH SCH ×2 (09:00→21:00)
--- NOTE | 2017-07-12 09:57 | RADRPT ---
EXAM DATE/TIME: 07/12/2017 09:03 [facility] COMPARISON: No previous studies available for comparison. INDICATIONS : Hydronephrosis. MEDICAL HISTORY : Gastroesophageal reflux disease. . SURGICAL HISTORY : None. ENCOUNTER: Initial ACUITY: 4-6 days PAIN SCORE: 7/10 LOCATION: Bilateral flank MEASUREMENTS: RIGHT KIDNEY: 12.0 x 6.3 x 6.9 cm LEFT KIDNEY: 13.2 x 5.2 x 6.1 cm FINDINGS: RIGHT KIDNEY: Renal cortex is normal in thickness and echotexture. The right renal pelvis is sli ghtly prominent in size. No significant stone, or mass. LEFT KIDNEY: Renal cortex is normal in thickness and echotexture. No hydronephrosis, stone, or m ass. BLADDER: Within normal limits given the degree of distension. CONCLUSION: 1. Slightly prominent right renal pelvis. This finding is nonspecific and may reflect residual collec ting system prominence if patient has a history of recent hydronephrosis. However, a potential partia lly obstructing ureteral process cannot be excluded. Robert Davis MD on July 12, 2017 at 9:44 Board Certified Radiologist. This report was verified electronically.
--- NOTE | 2017-07-12 13:20 | PD.OB.ANTE ---
Subjective Diagnosis: (1) Pyelonephritis affecting in third trimester Diagnosis: Principal Interval History renal sono suggestive of minimal hydronephrosis on right side. Continue current regimen Objective Vital Signs Vital Signs Date Time Temp Pulse Resp B/P (MAP) Pulse Ox O2 Delivery O2 Flow Rate FiO2 07/12/17 09:34 16 07/12/17 09:34 98.4 07/12/17 09:29 102 100/50 (67) 07/12/17 06:05 98.4 07/12/17 02:55 101 103/59 (74) 07/12/17 02:54 98.9 18 07/11/17 22:50 99.3 07/11/17 19:43 99.5 18 07/11/17 19:32 117 109/55 (73) 07/11/17 16:34 98.5 18 07/11/17 16:34 98 103/58 (73) 07/11/17 14:45 104 07/11/17 14:40 101 07/11/17 14:36 98.5 07/11/17 14:35 105 07/11/17 14:30 102 07/11/17 14:25 101 07/11/17 14:20 102 07/11/17 14:15 100 18 07/11/17 14:14 101 107/67 (80) 07/11/17 14:10 103 07/11/17 14:05 107 07/11/17 14:00 109 07/11/17 13:45 106 07/11/17 13:40 109 07/11/17 13:35 106 07/11/17 13:30 97 07/11/17 13:25 106 07/11/17 13:20 109 Lab & Micro Results Test 07/11/17 13:47 White Blood Count 13.0 TH/MM3 Red Blood Count 3.52 MIL/MM3 Hemoglobin 10.7 GM/DL Hematocrit 31.9 % Mean Corpuscular Volume 90.5 FL Mean Corpuscular Hemoglobin 30.4 PG Mean Corpuscular Hemoglobin Concent 33.6 % Red Cell Distribution Width 12.9 % Platelet Count 266 TH/MM3 Mean Platelet Volume 8.3 FL Neutrophils (%) (Auto) 87.9 % Lymphocytes (%) (Auto) 5.8 % Monocytes (%) (Auto) 6.1 % Eosinophils (%) (Auto) 0.0 % Basophils (%) (Auto) 0.2 % Neutrophils # (Auto) 11.4 TH/MM3 Lymphocytes # (Auto) 0.8 TH/MM3 Monocytes # (Auto) 0.8 TH/MM3 Eosinophils # (Auto) 0.0 TH/MM3 Basophils # (Auto) 0.0 TH/MM3 CBC Comment DIFF FINAL Differential Comment Blood Urea Nitrogen 6 MG/DL Creatinine 0.41 MG/DL Random Glucose 90 MG/DL Total Protein 6.8 GM/DL Albumin 2.5 GM/DL Calcium Level 8.5 MG/DL Alkaline Phosphatase 95 U/L Aspartate Amino Transf (AST/SGOT) 12 U/L Alanine Aminotransferase (ALT/SGPT) 11 U/L Total Bilirubin 0.7 MG/DL Direct Bilirubin 0.1 MG/DL Sodium Level 134 MEQ/L Potassium Level 3.5 MEQ/L Chloride Level 104 MEQ/L Carbon Dioxide Level 20.1 MEQ/L Anion Gap 10 MEQ/L Estimat Glomerular Filtration Rate 178 ML/MIN Indirect Bilirubin 0.6 MG/DL Date/Time Source Procedure Growth Status 07/11/17 12:30 Urine Clean Catch Urine Culture - Preliminary Gram Negative Charanjit Resulted Physical Exam GENERAL: Well-nourished, well-developed patient. CARDIOVASCULAR: Regular rate and rhythm without murmurs, gallops, or rubs. RESPIRATORY: Breath sounds equal bilaterally. No accessory muscle use. ABDOMEN/GI: Abdomen soft, non-tender. Fundus: [-] GENITOURINARY: External Genitalia: intact and normal in appearance Cervix: [-] Dilatation: [-] Effacement: [-] Station: [-] Presentation: [-] Membranes: [-] Uterine Contractions: [-] FHT's: Category: [-] Baseline: [-] Reactive: [-] Variability: [-] Decels: [-] EXTREMITIES: No cyanosis or edema, non-tender, without signs of DVT. Assessment and Plan Problem List: (1) Pyelonephritis affecting in third trimester ICD Codes: O23.03 - Infections of kidney in , third trimester Assessment and Plan Patient is a 36 year old at 33 and 0/7 weeks gestation, OB care with Dr. Wharton presenting with possible pyelonephritis. Pyelonephritis: Suspected based on history and presenting symptoms UTI treated with Macrobid 7-day course 06/30-07/06 with continued symptoms Right CVA tenderness UA ordered and noted to have positive nitrites, large leukocyte esterase, innumerable WBC, 100 protein-->culture pending IV LR bolus 1 liter, then at rate of 125ml/hr Antibiotic course per consultation with Dr. Wharton: Rocephin 2g q24hr IV, Gentamicin 80mg q8hr IV Patient counseled on likely 48 hr stay Will treat contractions with terbutaline if non-resolving with fluids Intrauterine : Category 1 tracing --> will continue intermittent monitoring at least q shift Contractions noted intermittently on monitor, will treat with IVF and monitor Cervix closed, thick, high Routine care Hyperemesis gravidarum: Takes Zofran PRN at home necessary, last dose this morning IVF as above Zofran 4mg q6hr IV PRN WDW Dr. Ulloa 07/11/17 18:40 Comfortable with reassuring strip needs 48 hours IV antibiotics 07/12/17 0800 Still with RCVAT renal sonogram continue IV antibiotics Juliette Wharton MD Jul 12, 2017 13:20
[2017-07-12] MEDS: cefTRIAXone INJ 2,000 MG in SODIUM CHLORIDE 0.9% INJ 100 ML IV SCH (13:43)
[2017-07-12] MEDS ORDERED: ACETAMINOPHEN 325 MG TAB PO PRN (17:45)
[2017-07-12] MEDS ORDERED: ACETAMINOPHEN/HYDROcodone 325 MG/5 MG TAB PO PRN (17:45)
[2017-07-13] VITALS (29 sets, daily range): BP systolic 93–109; BP diastolic 51–60; PULSE 89–128; RESP 17–20; TEMP 97.7–101.5
--- NOTE | 2017-07-13 02:53 | PD.OB.ANTE ---
Subjective Diagnosis: (1) Pyelonephritis affecting in third trimester Diagnosis: Principal Interval History hospital day 2 Antibiotics day 2 33 2/7 shakes and chills with temperature spike x 2 last one 101.5 (tmax at 2 am) Objective Vital Signs Vital Signs Date Time Temp Pulse Resp B/P (MAP) Pulse Ox O2 Delivery O2 Flow Rate FiO2 07/13/17 02:05 128 98/51 (67) 07/13/17 02:00 101.5 07/12/17 23:35 99.7 07/12/17 21:50 98.4 18 07/12/17 21:49 105 104/55 (71) 07/12/17 21:45 101 07/12/17 21:40 101 07/12/17 21:35 102 07/12/17 21:30 101 07/12/17 21:25 106 07/12/17 21:20 105 07/12/17 21:15 103 07/12/17 20:03 98.9 18 07/12/17 20:01 89 89/44 (59) 07/12/17 19:15 18 07/12/17 18:29 100.0 07/12/17 18:00 101.3 07/12/17 16:00 100.7 07/12/17 13:57 99.8 18 07/12/17 13:50 122 95/63 (74) 07/12/17 09:34 16 07/12/17 09:34 98.4 07/12/17 09:29 102 100/50 (67) 07/12/17 06:05 98.4 07/12/17 02:55 101 103/59 (74) 07/12/17 02:54 98.9 18 Lab & Micro Results Date/Time Source Procedure Growth Status 07/11/17 12:30 Urine Clean Catch Urine Culture - Preliminary Gram Negative Charanjit Resulted Physical Exam GENERAL: Well-nourished, well-developed patient. CARDIOVASCULAR: Regular rate and rhythm without murmurs, gallops, or rubs. RESPIRATORY: Breath sounds equal bilaterally. No accessory muscle use. ABDOMEN/GI: Abdomen soft, non-tender. strip category 1 EXTREMITIES: No cyanosis or edema, non-tender, without signs of DVT. Assessment and Plan Problem List: (1) Pyelonephritis affecting in third trimester ICD Codes: O23.03 - Infections of kidney in , third trimester Assessment and Plan Patient is a 36 year old at 33 and 0/7 weeks gestation, OB care with Dr. Wharton presenting with possible pyelonephritis. Pyelonephritis: Suspected based on history and presenting symptoms UTI treated with Macrobid 7-day course 06/30-07/06 with continued symptoms Right CVA tenderness UA ordered and noted to have positive nitrites, large leukocyte esterase, innumerable WBC, 100 protein-->culture pending IV LR bolus 1 liter, then at rate of 125ml/hr Antibiotic course per consultation with Dr. Wharton: Rocephin 2g q24hr IV, Gentamicin 80mg q8hr IV Patient counseled on likely 48 hr stay Will treat contractions with terbutaline if non-resolving with fluids Intrauterine : Category 1 tracing --> will continue intermittent monitoring at least q shift Contractions noted intermittently on monitor, will treat with IVF and monitor Cervix closed, thick, high Routine care Hyperemesis gravidarum: Takes Zofran PRN at home necessary, last dose this morning IVF as above Zofran 4mg q6hr IV PRN WDW Dr. Ulloa 07/11/17 18:40 Comfortable with reassuring strip needs 48 hours IV antibiotics 07/12/17 0800 Still with RCVAT renal sonogram continue IV antibiotics 07/13/17 0300 second Tspike in 24 hours with blood cultures ordered and ofirmev to be given culture of urine growing gram neg rods with I & D pending Will change antibiotics if needed. Called grandmother earlier at request for reassurance Juliette Wharton MD Jul 13, 2017 02:53
[2017-07-13] MEDS ORDERED: ACETAMINOPHEN 1000 MG/100 ML 100 ML IV ONE (03:00)
[2017-07-13] MEDS: GENTAMICIN INJ 80 MG in SODIUM CHLORIDE 0.9% INJ 100 ML IV SCH ×3 (06:00→21:38)
--- NOTE | 2017-07-13 08:05 | PD.OB.ANTE ---
Subjective Diagnosis: (1) Pyelonephritis affecting in third trimester Diagnosis: Principal Interval History 33 08/23 with right pyelo She is sleeping and I did not wake her up, since I evaluated her at 3 am Objective Vital Signs Vital Signs Date Time Temp Pulse Resp B/P (MAP) Pulse Ox O2 Delivery O2 Flow Rate FiO2 07/13/17 06:22 18 07/13/17 06:21 97.7 07/13/17 03:59 99.7 07/13/17 03:00 20 07/13/17 02:05 128 98/51 (67) 07/13/17 02:00 101.5 07/12/17 23:35 99.7 07/12/17 21:50 98.4 18 07/12/17 21:49 105 104/55 (71) 07/12/17 21:45 101 07/12/17 21:40 101 07/12/17 21:35 102 07/12/17 21:30 101 07/12/17 21:25 106 07/12/17 21:20 105 07/12/17 21:15 103 07/12/17 20:03 98.9 18 07/12/17 20:01 89 89/44 (59) 07/12/17 19:15 18 07/12/17 18:29 100.0 07/12/17 18:00 101.3 07/12/17 16:00 100.7 07/12/17 13:57 99.8 18 07/12/17 13:50 122 95/63 (74) 07/12/17 09:34 16 07/12/17 09:34 98.4 07/12/17 09:29 102 100/50 (67) Lab & Micro Results Date/Time Source Procedure Growth Status 07/13/17 03:50 Blood Peripheral Aerobic Blood Culture Pending Received 07/13/17 03:50 Blood Peripheral Anaerobic Blood Culture Pending Received 07/11/17 12:30 Urine Clean Catch Urine Culture - Preliminary Gram Negative Charanjit Resulted Physical Exam GENERAL: Well-nourished, well-developed patient. Strip is reactive with good BTBV no fever after 3 am EXTREMITIES: No cyanosis or edema, non-tender, without signs of DVT. Assessment and Plan Problem List: (1) Pyelonephritis affecting in third trimester ICD Codes: O23.03 - Infections of kidney in , third trimester Assessment and Plan Patient is a 36 year old at 33 and 0/7 weeks gestation, OB care with Dr. Wharton presenting with possible pyelonephritis. Pyelonephritis: Suspected based on history and presenting symptoms UTI treated with Macrobid 7-day course 06/30-07/06 with continued symptoms Right CVA tenderness UA ordered and noted to have positive nitrites, large leukocyte esterase, innumerable WBC, 100 protein-->culture pending IV LR bolus 1 liter, then at rate of 125ml/hr Antibiotic course per consultation with Dr. Wharton: Rocephin 2g q24hr IV, Gentamicin 80mg q8hr IV Patient counseled on likely 48 hr stay Will treat contractions with terbutaline if non-resolving with fluids Intrauterine : Category 1 tracing --> will continue intermittent monitoring at least q shift Contractions noted intermittently on monitor, will treat with IVF and monitor Cervix closed, thick, high Routine care Hyperemesis gravidarum: Takes Zofran PRN at home necessary, last dose this morning IVF as above Zofran 4mg q6hr IV PRN WDW Dr. Ulloa 07/11/17 18:40 Comfortable with reassuring strip needs 48 hours IV antibiotics 07/12/17 0800 Still with RCVAT renal sonogram continue IV antibiotics 07/13/17 0300 second Tspike in 24 hours with blood cultures ordered and ofirmev to be given culture of urine growing gram neg rods with I & D pending Will change antibiotics if needed. Called grandmother earlier at request for reassurance 07/13/17 0800 Right pyelonephritis with temp spikes on rocephin and gentamicin anticipate resolution with IV antibiotics cultures pending Juliette Wharton MD Jul 13, 2017 08:05
[2017-07-13] MEDS: SODIUM CHLORIDE 0.9% FLUSH 10 ML FLUSH IV FLUSH SCH ×2 (08:54→21:00)
[2017-07-13] MEDS: cefTRIAXone INJ 2,000 MG in SODIUM CHLORIDE 0.9% INJ 100 ML IV SCH (14:12)
[2017-07-14] VITALS (25 sets, daily range): BP systolic 94–109; BP diastolic 55–71; PULSE 70–97; RESP 18; TEMP 98–99
[2017-07-14] MEDS: GENTAMICIN INJ 80 MG in SODIUM CHLORIDE 0.9% INJ 100 ML IV SCH (05:44)
--- NOTE | 2017-07-14 08:09 | PD.OB.ANTE ---
Subjective Diagnosis: (1) Pyelonephritis affecting in third trimester Diagnosis: Principal Interval History good movement. Mild contractions still. Still has rcva tenderness but improved. Had a better night as she did not feel hot or have night sweats Antepartum ROS: Reports: movement normal, Contractions, Denies: New complaints, Loss of fluid, Vaginal bleeding, Other Objective Vital Signs Vital Signs Date Time Temp Pulse Resp B/P (MAP) Pulse Ox O2 Delivery O2 Flow Rate FiO2 07/14/17 05:41 98.7 18 07/14/17 05:34 91 103/55 (71) 07/14/17 00:00 98.9 07/14/17 00:00 18 07/13/17 23:41 89 93/54 (67) 07/13/17 20:45 97 07/13/17 20:40 96 07/13/17 20:35 100 07/13/17 20:30 96 07/13/17 20:25 98 07/13/17 20:20 98 07/13/17 20:15 100 07/13/17 20:14 18 07/13/17 20:06 98.2 07/13/17 20:06 102 103/58 (73) 07/13/17 16:03 98.9 07/13/17 15:55 96 07/13/17 15:50 89 07/13/17 15:45 93 07/13/17 15:40 96 07/13/17 15:35 95 07/13/17 15:30 92 07/13/17 15:27 89 109/60 (76) 07/13/17 15:00 18 07/13/17 13:00 17 07/13/17 12:35 97.9 07/13/17 11:00 17 07/13/17 09:00 17 Lab & Micro Results Date/Time Source Procedure Growth Status 07/13/17 03:50 Blood Peripheral Aerobic Blood Culture Pending Received 07/13/17 03:50 Blood Peripheral Anaerobic Blood Culture Pending Received 07/11/17 12:30 Urine Clean Catch Urine Culture - Final Escherichia Coli Complete Physical Exam GENERAL: Well-nourished, well-developed patient. CARDIOVASCULAR: Regular rate and rhythm without murmurs, gallops, or rubs. RESPIRATORY: Breath sounds equal bilaterally. No accessory muscle use. ABDOMEN/GI: Abdomen soft, non-tender. RCVA tenderness Fundus: [-] GENITOURINARY: External Genitalia: intact and normal in appearance Cervix: cl/th Uterine Contractions: [q 5 min FHT's: Category:I last night EXTREMITIES: No cyanosis or edema, non-tender, without signs of DVT. Assessment and Plan Problem List: (1) Pyelonephritis affecting in third trimester ICD Codes: O23.03 - Infections of kidney in , third trimester Assessment and Plan Patient is a 36 year old at 33 and 0/7 weeks gestation, OB care with Dr. Wharton presenting with possible pyelonephritis. Pyelonephritis: UTI treated with Macrobid 7-day course 06/30-07/06 with continued symptoms Right CVA tenderness. Renal u/s performed, no renal abscess. Cx ecoli. On Gent and Rocephin. Afebrile for 28 hours. will await 48 hours afebrile prior to d/c. Will switch to po abx now, keflex bid and then daily for suppression for remainder of . Bl cx result pending Intrauterine : Category 1 tracing --> will continue intermittent monitoring at least q shift Contractions noted intermittently on monitor, Hyperemesis gravidarum: Takes Zofran PRN at home necessary Giana Collins MD Jul 14, 2017 08:09
[2017-07-14] MEDS ORDERED: NITROFURANTOIN MONOHYD MACROCR 100 MG CAP PO SCH (09:00)
[2017-07-14] MEDS: SODIUM CHLORIDE 0.9% FLUSH 10 ML FLUSH IV FLUSH SCH ×2 (09:00→21:30)
[2017-07-14] MEDS: CEPHALEXIN MONOHYDRATE 500 MG CAP PO SCH ×2 (11:11→21:09)
[2017-07-15 02:30] VITALS: TEMP 98.1
[2017-07-15 06:00] VITALS: TEMP 98.6
[2017-07-15 07:48] VITALS: TEMP 98
[2017-07-15 07:49] VITALS: BP 89/52; PULSE 82
[2017-07-15 08:00] VITALS: RESP 16
[2017-07-15] MEDS: CEPHALEXIN MONOHYDRATE 500 MG CAP PO SCH (08:43)
--- NOTE | 2017-07-15 09:52 | PD.OB.ANTE ---
Subjective Diagnosis: (1) Pyelonephritis affecting in third trimester Diagnosis: Principal Objective Vital Signs Vital Signs Date Time Temp Pulse Resp B/P (MAP) Pulse Ox O2 Delivery O2 Flow Rate FiO2 07/15/17 08:00 16 07/15/17 07:49 82 89/52 (64) 07/15/17 07:48 98.0 07/15/17 06:00 98.6 07/15/17 02:30 98.1 07/14/17 23:25 88 97/68 (78) 07/14/17 23:24 99.0 07/14/17 23:15 89 07/14/17 23:10 87 07/14/17 23:05 88 07/14/17 23:00 86 07/14/17 19:57 18 07/14/17 19:57 90 109/71 (84) 07/14/17 19:57 98.5 07/14/17 17:46 98.0 07/14/17 17:45 97 103/67 (79) 07/14/17 14:55 80 07/14/17 14:50 86 07/14/17 14:45 75 07/14/17 14:40 76 07/14/17 14:35 74 07/14/17 14:30 72 07/14/17 14:25 71 07/14/17 14:20 71 07/14/17 14:15 70 07/14/17 14:10 74 07/14/17 14:00 98.1 18 07/14/17 13:47 77 94/55 (68) Lab & Micro Results Date/Time Source Procedure Growth Status 07/13/17 03:50 Blood Peripheral Aerobic Blood Culture - Preliminary NO GROWTH IN 1 DAY Resulted 07/13/17 03:50 Blood Peripheral Anaerobic Blood Culture - Preliminary NO GROWTH IN 1 DAY Resulted 07/11/17 12:30 Urine Clean Catch Urine Culture - Final Escherichia Coli Complete Physical Exam GENERAL: Well-nourished, well-developed patient. CARDIOVASCULAR: Regular rate and rhythm without murmurs, gallops, or rubs. RESPIRATORY: Breath sounds equal bilaterally. No accessory muscle use. ABDOMEN/GI: Abdomen soft, non-tender. Fundus: [-] GENITOURINARY: External Genitalia: intact and normal in appearance defer FHT's: in progress EXTREMITIES: No cyanosis or edema, non-tender, without signs of DVT. Assessment and Plan Problem List: (1) Pyelonephritis affecting in third trimester ICD Codes: O23.03 - Infections of kidney in , third trimester Assessment and Plan Patient is a 36 year old at 33 and 4/7 weeks gestation, OB care with Dr. Wharton presenting with possible pyelonephritis. Pyelonephritis: UTI treated with Macrobid 7-day course 06/30-07/06 with continued symptoms Right CVA tenderness. Renal u/s performed, no renal abscess. Cx ecoli. On Gent and Rocephin. Afebrile for 28 hours then switched to po keflex and she has remoained afebrile x 24 hours. keflex bid x 1 wk and then daily for suppression for remainder of . Bl cx result pending, neg x 1 day Intrauterine : Category 1 tracing yesterday, repeat today prior to d/c Contractions noted intermittently on monitor, cl th high yesterday Hyperemesis gravidarum: Takes Zofran PRN at home necessary D/c home today after reactive tracing Giana Collins MD Jul 15, 2017 09:52
[2017-07-15] MEDS ORDERED: CEPH500C PO (09:55)
== END 2017-07-15 11:40 | disposition home or self-care (01) ==
LOC: HOBED 12:17 → H2EA 13:40
PROVIDERS: ADMIT Obstetrics & Gynecology; ATTEND Obstetrics & Gynecology
DX: N12 Tubulo-interstitial nephritis, not specified as acute or chronic (principal); Z3A.33 33 weeks gestation of pregnancy; B96.20 Unspecified Escherichia coli [E. coli] as the cause of diseases classified elsewhere; O21.0 Mild hyperemesis gravidarum
CPT/HCPCS: 59025; 76775; 80048; 80076; 81001; 85025; 87040; 87077; 87086; 87186; 96365; 96366; 96368; 99285; G0378; J0131; J0696; J1580; J7120

== ENCOUNTER 2017-08-09 04:53 | Inpatient (IN) | payer BC ==
[~2017-08-09] VITALS: Ht 154.9 cm; Wt 71.0 kg
[2017-08-09] VITALS (70 sets, daily range): BP systolic 88–131; BP diastolic 50–85; PULSE 76–282; RESP 18; TEMP 97.4–98.7; O2SAT 100
[~2017-08-09 04:53] MED LIST changes: +CEPH500C PO
--- NOTE | 2017-08-09 05:44 | PD ---
HPI Chief Complaint LOF Travel History International Travel<30 Days: No Contact w/Intl Traveler<30Days: No Known Affected Area: No History of Present Illness HPI 36-year-old 001, IUP at 37.1 care at complicated by hyperemesis gravidarum, pyelonephritis Patient presents complaining of a large gush of clear fluid at 3:30 this morning. She reports that contractions started about 4 AM but remain irregular and mild in nature. She reports she continues to leak. She denies any vaginal bleeding. She reports good movement. She denies regular, painful contractions. She has no other complaints. Weeks Gestation: 37 Para: 1 : 2 History Past Medical History Narrative Medical Hyperemesis gravidarum Pyelonephritis Obstetric History Obstetric History , 1 Hyperemesis gravidarum 2 Past Surgical History Surgical History: No Previous Surgery Family History Family History: Negative Social History Alcohol Use: No Tobacco Use: No Substance Abuse: No Allergies-Medications (Allergen,Severity, Reaction): Coded Allergies: penicillin G (Unverified Adverse Reaction, Severe, rash, 02/28/17) Uncoded Allergies: CILLINS (Allergy, Severe, 04/16/15) Home Meds Active Scripts Cephalexin (Cephalexin) 500 Mg Cap, 500 MG PO BID for uti for 7 Days, #14 CAP Prov:Giana Collins MD 07/15/17 Metoclopramide (Reglan) 10 Mg Tab, 10 MG PO TIDAC for Reflux, #60 TAB 2 Refills Prov:Niurka Currie MD 02/08/17 Ranitidine (Zantac) 150 Mg Tab, 150 MG PO BID for Reduce Stomach Acid, #60 TAB 2 Refills Prov:Niurka Currie MD 02/08/17 Promethazine (Phenergan) 25 Mg Tablet, 25 MG PO Q8H for Nausea, #90 TAB 2 Refills Prov:Niurka Currie MD 02/08/17 Ondansetron Odt (Zofran Odt) 4 Mg Tab, 4 MG SL Q8HR Y for Nausea/Vomiting, #15 TAB May substitute non-ODT form. Prov:Basilio Ramirez MD 01/31/17 Review of Systems Except as stated in HPI: all other systems reviewed are Neg Physical Exam Narrative GENERAL: Well-nourished, well-developed patient. SKIN: Warm and dry. HEAD: Normocephalic and atraumatic. EYES: No scleral icterus. No injection or drainage. ENT: No nasal drainage noted. Mucous membranes pink. Airway patent. NECK: Supple, trachea midline. No JVD. CARDIOVASCULAR: Regular rate and rhythm without murmurs, gallops, or rubs. RESPIRATORY: Breath sounds equal bilaterally. No accessory muscle use. BREASTS: Deferred ABDOMEN/GI: Abdomen soft, non-tender, bowel sounds present, no rebound, no guarding Gravid GENITOURINARY: External Genitalia: intact and normal in appearance. Normal BUS. No cervical or vaginal masses noted. Grossly normal rugae. Patient appears to be grossly ruptured with SVE 2/60/-2. Amniosure positive. Cephalic as per RN. Uterine Contractions: Irregular FHT's: heart tones in the 140s with moderate long-term variability, good accelerations, no decelerations. This is a category 1 heart rate tracing and reactive NST EXTREMITIES: No cyanosis or edema. BACK: Nontender without obvious deformity. . NEUROLOGICAL/musculoskeletal: Awake and alert. Motor and sensory grossly within normal limits. Grossly normal muscle strength in all muscle groups. Normal speech. Grossly normal range of motion, gait new line psychiatric: Grossly normal Data Data Orders Orders Ob (2e) Additional Admit Info (08/09/17 05:23) MDM Plan Assessment/plan: 1. IUP at 37.1 2. PROM: Patient with grossly ruptured membranes. Discussed in brief with the patient risks of and risks/indications for delivery if indicated for or maternal indications. Decreased discussed in brief augmentation/ induction of labor if indicated. Will admit to Dr. Walker for further management. 3. Pyelonephritis: Admitted for pyelonephritis on 07/11/17 4. GBS negative 5. Hyperemesis 6. well-being: Reassuring testing with category 1 heart rate tracing reactive NST, continue Yamileth Majano MD Aug 09, 2017 05:44
[2017-08-09] MEDS ORDERED: MINERAL OIL 10 ML VIAL TOPICAL PRN (05:45)
[2017-08-09] MEDS ORDERED: SODIUM CHLORID 0.9% 500 ML INJ 500 ML IV PRN (05:45)
[2017-08-09] MEDS ORDERED: LACTATED RINGER'S 1000 ML INJ 1,000 ML IV PRN (05:45)
[2017-08-09] MEDS ORDERED: LIDOCAINE HCL 1% 50 ML VIAL INFIL PRN (05:45)
[2017-08-09] MEDS ORDERED: LIDOCAINE HCL 1% 50 ML VIAL I-DERMAL PRN (05:45)
[2017-08-09] MEDS ORDERED: CITRIC ACID-SODIUM CITRATE LIQ 30 ML UDC PO SCH (05:45)
[2017-08-09] MEDS ORDERED: OXYTOCIN 30 UNITS-500ML PREMIX 500 ML IV ONE (05:45)
[2017-08-09] MEDS ORDERED: SODIUM CHLOR 0.9% 1000 ML INJ 1,000 ML IV PRN (06:05)
[2017-08-09 06:25] LABS: BACTERIA, URINE RARE /hpf; BILIRUBIN, URINE NEG (NEG); BLOOD, URINE MOD (NEG); GLUCOSE,URINE 300 mg/dL (NEG); KETONE, URINE TRACE mg/dL (NEG); MUCUS URINE FEW /lpf (OCC); NITRITE,URINE NEG (NEG); SQUAMOUS EPITHELIAL CELL URINE 28 /hpf (0-5); TRANSITIONAL EPI CELLS, URINE <1 /hpf; URINE COLOR YELLOW (YELLW/STRAW); URINE LEUKOCYTE ESTERASE SMALL (NEG)
[2017-08-09] MEDS ORDERED: OXYTOCIN 30 UNITS/NS 500ML PREMIX IV PRN (06:30)
[2017-08-09] MEDS ORDERED: ONDANSETRON HCL 4 MG/2 ML VIAL IV PRN (06:30)
[2017-08-09 06:35] LABS: AUTOMATED NEUTROPHIL # 5.4 TH/MM3 (1.8-7.7); BASOPHIL % 0.5 % (0.0-2.0); EOSINOPHIL % 0.5 % (0.0-4.0); HEMOGLOBIN 10.5 GM/DL (11.6-15.3); LYMPHOCYTE # 1.7 TH/MM3 (1.0-4.8); MEAN CELL VOLUME 88.2 FL (80.0-100.0); MEAN CORPUSCULAR HEMOGLOBIN 30.9 PG (27.0-34.0); MEAN PLATELET VOLUME 8.3 FL (7.0-11.0); MONO % 7.5 % (0.0-8.0); MONOCYTE # 0.6 TH/MM3 (0-0.9); NEUT % 69.5 % (16.0-70.0); PLATELET COUNT 272 TH/MM3 (150-450); RED CELL DISTRIBUTION WIDTH 13.6 % (11.6-17.2); WHITE BLOOD COUNT 7.9 TH/MM3 (4.0-11.0)
[2017-08-09] MEDS: LACTATED RINGER'S 1000 ML INJ 1,000 ML IV SCH ×2 (06:39→10:07)
--- NOTE | 2017-08-09 08:17 | HHI.PR ---
DIRECTOR PHARMACOLOGY Note Note doing well, mild to moderate contractions, not yet requesting epidural SVE /-2, clear fluid, SROM'd around 330A today pitocin running, continue augmentation anticipate Niurka Currie MD Aug 09, 2017 08:17
[2017-08-09] MEDS ORDERED: ePHEDrine/NS 25 MG/5 ML SYRINGE ONE (09:09)
[2017-08-09] MEDS ORDERED: fentaNYL 2MCG-BUPIV 0.125% INJ 100 ML ONE (09:09)
[2017-08-09] MEDS ORDERED: DO NOT ADMINISTER ANTICOAGULANTS PRN (10:00)
[2017-08-09] MEDS ORDERED: NO SYSTEM NARCOTICS PRN (10:00)
[2017-08-09] MEDS ORDERED: ePHEDrine/NS 25 MG/5 ML SYRINGE IV PUSH PRN (10:00)
[2017-08-09] MEDS: fentaNYL 2MCG-BUPIV 0.125% 100 ML EPIDURAL SCH ×2 (10:07→15:08)
[2017-08-09] MEDS ORDERED: LIDOCAINE HCL 1% 20 ML VIAL ONE (14:41)
--- NOTE | 2017-08-09 15:47 | PD.OB.DELI ---
Weeks gestation: 37 Gest age assessed date: Aug 09, 2017 Pt started active labor?: Yes Active labor start date: Aug 09, 2017 Active labor start time: 08:00 Medical induction of labor?: No Artificial rupture of membrane: No Anesthesia: Epidural Episiotomy: None Vaginal Delivery: Normal Presentation: Occiput anterior Nuchal Cord: None Delayed cord clamping (45 sec): Yes : Female Delivery date: Aug 09, 2017 Delivery time: 15:47 One Minute : 9 Five Minute : 9 Weight: 6 Placenta: Spontaneous delivery Laceration: 1 deg Repair: Chromic interrupted Estimated blood loss: 300 Juliette Wharton MD Aug 09, 2017 15:47
--- NOTE | 2017-08-09 15:50 | HHI.DCPOC ---
Discharge Care Plan Report Symptoms to Your Doctor -Temperature above 100.5 degrees -Redness, of incision or excessive or foul smelling drainage -Unusual pain or calf pain -Increased vaginal bleeding -Painful or difficulty urinating -Feelings of extreme sadness or anxiety after 2 weeks Goals to Promote Your Health * To prevent worsening of your condition and complications * To maintain your health at the optimal level Directions to Meet Your Goals Take your medications as prescribed Follow your dietary instruction Follow activity as directed Ensure plenty of rest for recovery Drink fluids for hydration Keep your appointments as scheduled Take your immunizations and boosters as scheduled If your symptoms worsen call your PCP, if no PCP go to Urgent Care Center or Emergency Room Smoking is Dangerous to Your Health. Avoid second hand smoke Call the 24-hour crisis hotline for domestic abuse at Juliette Wharton MD Aug 09, 2017 15:50
[2017-08-09] MEDS ORDERED: BENZOCAINE 20% TOPICAL SPRAY 60 ML CAN TOPICAL PRN (16:00)
[2017-08-09] MEDS ORDERED: SODIUM CHLORIDE 0.9% FLUSH 10 ML FLUSH IV FLUSH PRN (16:00)
[2017-08-09] MEDS ORDERED: DOCUSATE SODIUM 50 MG/SENNA 8.6 MG TAB PO PRN (16:00)
[2017-08-09] MEDS ORDERED: OXYTOCIN 30 UNITS-500ML PREMIX 500 ML IV SCH (16:00)
[2017-08-09] MEDS ORDERED: DIPHTH/TETANUS/ACEL PERTUSSIS (BOOSTER) 0.5 ML VIAL/PFS IM ONE (16:00)
[2017-08-09] MEDS ORDERED: MEASLES, MUMPS, RUBELLA VACCINE 0.5 ML VIAL SQ ONE (16:00)
[2017-08-09] MEDS ORDERED: ONDANSETRON ODT 4 MG TAB PO PRN (16:00)
[2017-08-09] MEDS ORDERED: ZOLPIDEM TARTRATE 5 MG TAB PO PRN (16:00)
[2017-08-09] MEDS ORDERED: ACETAMINOPHEN 325 MG TAB PO PRN (16:00)
[2017-08-09] MEDS ORDERED: IBUPROFEN 800 MG TAB PO PRN (16:00)
[2017-08-09] MEDS ORDERED: ALUMINUM/MAGNESIUM/SIMETH 30 ML CUP PO PRN (16:00)
[2017-08-09] MEDS ORDERED: WITCH HAZEL 50%/GLYCERIN 12.5% 40 PAD JAR TOPICAL PRN (16:00)
[2017-08-09] MEDS ORDERED: SODIUM CHLORIDE 0.9% FLUSH 10 ML FLUSH IV FLUSH SCH (21:00)
--- NOTE | 2017-08-10 07:49 | HHI.OB ---
Subjective Post Day: 1 Remarks s/p FTSVD of healthy female Objective Vitals/I&O Vital Signs Date Time Temp Pulse Resp B/P (MAP) Pulse Ox O2 Delivery O2 Flow Rate FiO2 08/09/17 20:30 97.4 78 18 111/74 (86) 100 08/09/17 19:55 18 08/09/17 19:45 82 114/75 (88) 08/09/17 19:30 91 124/83 (97) 08/09/17 19:16 282 116/77 (90) 08/09/17 19:00 80 122/77 (92) 08/09/17 18:45 88 131/85 (100) 08/09/17 18:30 79 117/68 (84) 08/09/17 18:15 82 116/72 (87) 08/09/17 18:01 112/73 (86) 08/09/17 18:01 85 08/09/17 17:45 81 118/78 (91) 08/09/17 17:30 76 120/74 (89) 08/09/17 17:25 98.2 18 08/09/17 17:15 80 113/66 (82) 08/09/17 17:00 82 116/77 (90) 08/09/17 16:45 84 117/77 (90) 08/09/17 16:31 93 114/80 (91) 08/09/17 16:15 95 121/74 (90) 08/09/17 16:02 18 08/09/17 16:01 94 112/66 (81) 08/09/17 16:00 95 119/67 (84) 08/09/17 15:42 140 107/62 (77) 08/09/17 15:30 112 110/66 (81) 08/09/17 15:08 18 08/09/17 15:00 98 111/73 (86) 08/09/17 14:45 98.5 18 08/09/17 14:30 92 107/64 (78) 08/09/17 14:00 99 113/55 (74) 08/09/17 13:30 93 113/68 (83) 08/09/17 13:00 90 105/61 (76) 08/09/17 12:30 98.7 18 1/24/18 12:30 87 94/52 (66) 08/09/17 12:00 108 113/64 (80) 08/09/17 11:30 98.0 18 08/09/17 11:30 88 98/63 (75) 08/09/17 11:17 100 94/58 (70) 08/09/17 11:15 82 08/09/17 11:10 98 88/61 (70) 08/09/17 11:10 94 08/09/17 11:05 97 08/09/17 11:00 94 92/50 (64) 08/09/17 11:00 85 08/09/17 10:55 108 08/09/17 10:50 86 08/09/17 10:45 92 08/09/17 10:40 101 08/09/17 10:35 103 08/09/17 10:30 109 08/09/17 10:30 103 101/53 (69) 08/09/17 10:25 100 08/09/17 10:20 97 08/09/17 10:15 103 08/09/17 10:10 87 08/09/17 10:07 18 08/09/17 10:05 87 122/68 (86) 08/09/17 10:05 91 08/09/17 10:00 96 08/09/17 10:00 89 113/61 (78) 08/09/17 09:56 126 116/62 (80) 08/09/17 09:55 99 08/09/17 09:50 85 08/09/17 09:50 94 121/75 (90) 08/09/17 09:48 88 123/68 (86) 08/09/17 09:45 106 112/56 (74) 08/09/17 09:45 92 08/09/17 09:40 97 18 09:40 96 111/64 (80) 08/09/17 09:39 98.0 18 08/09/17 09:36 92 114/67 (83) 08/09/17 09:35 90 18 09:34 89 118/65 (82) 08/09/17 09:30 94 18 09:25 94 08/09/17 09:20 94 08/09/17 09:00 84 111/66 (81) 08/09/17 08:33 91 119/67 (84) Objective Remarks GENERAL: Well-nourished, well-developed patient. CARDIOVASCULAR: Regular rate and rhythm without murmurs, gallops, or rubs. RESPIRATORY: Breath sounds equal bilaterally. No accessory muscle use. ABDOMEN/GI: Abdomen soft, non-tender. Fundus: Firm, non-tender at umbilicus. GENITOURINARY: Light bleeding. EXTREMITIES: No cyanosis or edema, non-tender, without signs of DVT. Medications and IVs Current Medications Medications (Trade) Dose Ordered Sig/Donnie Route Start Time Stop Time Status Last Admin Lactated Ringer's 1,000 ml @ 125 mls/hr Q8H IV 08/09/17 05:45 08/09/17 10:07 Lactated Ringer's 1,000 ml @ 3,000 mls/hr Q20M PRN IV 08/09/17 05:45 Sodium Chloride 1,000 ml @ 100 mls/hr Q10H PRN IV 08/09/17 06:05 (Xylocaine 1% Inj (50 ml)) 0.1 ml UNSCH X1 PRN I-DERMAL 08/09/17 05:45 08/12/17 05:44 (Bicitra Liq) 30 ml FINISHING RANGE SUPERVISOR PO 08/09/17 05:45 08/13/17 05:44 (fentaNYL INJ) 50 mcg Q1H PRN IV PUSH 08/09/17 05:45 (fentaNYL INJ) 100 mcg Q1H PRN IV PUSH 08/09/17 05:45 (Xylocaine 1% Inj (50 ml)) 10 ml UNSCH X1 PRN INFIL 08/09/17 05:45 08/11/17 05:44 (Muri-Lube Oil) 10 ml UNSCH PRN TOPICAL 08/09/17 05:45 (Zofran Inj) 4 mg Q6H PRN IV 08/09/17 06:30 08/09/17 06:40 Oxytocin 500 ml @ 0 mls/hr TITRATE PRN IV 08/09/17 06:30 Miscellaneous Information No systemic narcotics to be given except... UNSCH PRN .XX 08/09/17 10:00 08/10/17 09:59 Miscellaneous Information DO NOT ADMINISTER ANY ANTICOAGUL... UNSCH PRN .XX 08/09/17 10:00 08/10/17 09:59 Fentanyl/ Bupivacaine HCl 100 ml @ 0 mls/hr TITRATE EPIDURAL 08/09/17 10:00 08/09/17 15:08 (ePHEDrine/NS 25 MG/5 ML SYR) 10 mg UNSCH PRN IV PUSH 08/09/17 10:00 08/10/17 09:59 08/09/17 10:08 (NS Flush) 2 ml BID IV FLUSH 08/09/17 21:00 (NS Flush) 2 ml UNSCH PRN IV FLUSH 08/09/17 16:00 (Tylenol) 650 mg Q4H PRN PO 08/09/17 16:00 (Motrin) 800 mg Q8H PRN PO 08/09/17 16:00 (Americaine 20% Top Spr) 1 spray Q4H PRN TOPICAL 08/09/17 16:00 (Tucks Pads) 1 applic QID PRN TOPICAL 08/09/17 16:00 (Bekah-Colace) 2 tab Q12H PRN PO 08/09/17 16:00 (Ambien) 5 mg HS PRN PO 08/09/17 16:00 (Mag-Al Plus Susp Liq) 15 ml Q8H PRN PO 08/09/17 16:00 (Zofran Odt) 4 mg Q6H PRN PO 08/09/17 16:00 Assessment/Plan Problem List: (1) (spontaneous vaginal delivery) ICD Codes: O80 - Encounter for full-term uncomplicated delivery Status: Acute Assessment and Plan PPD#1 routine supportive care anticipate d/c tmrw 08/11/17 Discharge Planning routine Niurka Currie MD Aug 10, 2017 07:49
[2017-08-10 08:30] VITALS: BP 114/73; PULSE 83; RESP 20; TEMP 97.7
[2017-08-10] MEDS ORDERED: diphenhydrAMINE HCL 50 MG CAP PO ONE (11:00)
[2017-08-10 20:30] VITALS: BP 128/83; PULSE 88; RESP 16; TEMP 98.8; O2SAT 98
[2017-08-11 08:00] VITALS: BP 113/79; PULSE 76; RESP 16; TEMP 97.5; O2SAT 99
--- NOTE | 2017-08-11 08:15 | HHI.OB ---
Subjective Post Day: 2 Remarks doing well, ready for discharge Objective Vitals/I&O Vital Signs Date Time Temp Pulse Resp B/P (MAP) Pulse Ox O2 Delivery O2 Flow Rate FiO2 08/10/17 20:30 88 128/83 (98) 08/10/17 20:30 98.8 16 98 08/10/17 08:30 97.7 08/10/17 08:30 83 20 114/73 (87) Objective Remarks GENERAL: Well-nourished, well-developed patient. CARDIOVASCULAR: Regular rate and rhythm without murmurs, gallops, or rubs. RESPIRATORY: Breath sounds equal bilaterally. No accessory muscle use. ABDOMEN/GI: Abdomen soft, non-tender. Fundus: Firm, non-tender at umbilicus. GENITOURINARY: Light bleeding. EXTREMITIES: No cyanosis or edema, non-tender, without signs of DVT. Medications and IVs Current Medications Medications (Trade) Dose Ordered Sig/Donnie Route Start Time Stop Time Status Last Admin Lactated Ringer's 1,000 ml @ 125 mls/hr Q8H IV 08/09/17 05:45 08/09/17 10:07 Lactated Ringer's 1,000 ml @ 3,000 mls/hr Q20M PRN IV 08/09/17 05:45 Sodium Chloride 1,000 ml @ 100 mls/hr Q10H PRN IV 08/09/17 06:05 (Xylocaine 1% Inj (50 ml)) 0.1 ml UNSCH X1 PRN I-DERMAL 08/09/17 05:45 08/12/17 05:44 (Bicitra Liq) 30 ml PRODUCT TEST ENGINEER PO 08/09/17 05:45 08/13/17 05:44 (fentaNYL INJ) 50 mcg Q1H PRN IV PUSH 08/09/17 05:45 (fentaNYL INJ) 100 mcg Q1H PRN IV PUSH 08/09/17 05:45 (Muri-Lube Oil) 10 ml UNSCH PRN TOPICAL 08/09/17 05:45 (Zofran Inj) 4 mg Q6H PRN IV 08/09/17 06:30 08/09/17 06:40 Oxytocin 500 ml @ 0 mls/hr TITRATE PRN IV 08/09/17 06:30 Fentanyl/ Bupivacaine HCl 100 ml @ 0 mls/hr TITRATE EPIDURAL 08/09/17 10:00 08/09/17 15:08 (NS Flush) 2 ml BID IV FLUSH 08/09/17 21:00 (NS Flush) 2 ml UNSCH PRN IV FLUSH 08/09/17 16:00 (Tylenol) 650 mg Q4H PRN PO 08/09/17 16:00 (Motrin) 800 mg Q8H PRN PO 08/09/17 16:00 08/10/17 09:26 (Americaine 20% Top Spr) 1 spray Q4H PRN TOPICAL 08/09/17 16:00 (Tucks Pads) 1 applic QID PRN TOPICAL 08/09/17 16:00 08/11/17 04:20 (Bekah-Colace) 2 tab Q12H PRN PO 08/09/17 16:00 08/10/17 09:26 (Ambien) 5 mg HS PRN PO 08/09/17 16:00 (Mag-Al Plus Susp Liq) 15 ml Q8H PRN PO 08/09/17 16:00 (Zofran Odt) 4 mg Q6H PRN PO 08/09/17 16:00 Assessment/Plan Problem List: (1) (spontaneous vaginal delivery) ICD Codes: O80 - Encounter for full-term uncomplicated delivery Status: Acute Assessment and Plan PPD#2 routine supportive care anticipate d/c 08/11/17 Discharge Planning routine Attending Attestation pt seen by Lou Ahn MD Aug 11, 2017 08:15
[2017-08-11] MEDS ORDERED: IBUP1TAB7 PO (08:16)
== END 2017-08-11 12:50 | disposition home or self-care (01) | DRG 775 ==
LOC: HOBED 04:53 → H2EB 05:23 → H1EA 20:14
PROVIDERS: ADMIT Obstetrics & Gynecology; ATTEND Obstetrics & Gynecology
PROC: 10E0XZZ Delivery of Products of Conception, External Approach (ICD-10-PCS; principal; 2017-08-09)
PROC: 0HQ9XZZ Repair Perineum Skin, External Approach (ICD-10-PCS; 2017-08-09)
DX: O70.0 First degree perineal laceration during delivery (principal); Z37.0 Single live birth; Z3A.37 37 weeks gestation of pregnancy
CPT/HCPCS: 80307; 81001; 85025; 86900; 86901; 87086; 90715; J2405; J2590; J7120; Q0163